=== PATIENT | female | born 1955 | race Caucasian/White ===

== ENCOUNTER 2019-03-10 08:59 | Inpatient (IN) | payer MEDICARE, MEDICAID ==
[2019-03-04 13:23] LABS: BASOPHILS % (AUTO) 0.6 % (0-1); EOSINOPHILS # (AUTO) 0.2 X10'3 (0-0.9); EOSINOPHILS % (AUTO) 3.2 % (0-6); LYMPHOCYTES # (AUTO) 1.2 X10'3 (1.1-4.8); LYMPHOCYTES % (AUTO) 15.4 % (21-51); MEAN CORPUSCULAR HEMOGLOBIN 30.9 PG (27.0-31.0); MEAN CORPUSCULAR HGB CONC 32.5 g/dL (33.0-36.5); MEAN CORPUSCULAR VOLUME 95.1 FL (78-98); MEAN PLATELET VOLUME 8.4 FL (7.4-10.4); MONOCYTES # (AUTO) 0.5 X10'3 (0-0.9); MONOCYTES % (AUTO) 6.5 % (2-12); NEUTROPHILS # (AUTO) 5.6 X10'3 (1.8-7.7); NEUTROPHILS % (AUTO) 74.3 % (42-75); PRE OP HEMATOCRIT 33.4 % (35.0-45.0); PRE OP PLATELET COUNT 281 X10'3 (140-440); RED BLOOD COUNT 3.52 X10'6 (4.20-5.60); RED CELL DISTRIBUTION WIDTH 14.9 % (11.5-14.5)
[2019-03-04 13:25] LABS: PRE OP HEMOGLOBIN 10.9 g/dL (12.0-16.0)
[2019-03-04 13:29] LABS: HEMOGLOBIN A1C 5.8 % (4.5-6.2)
[2019-03-04 13:35] LABS: ALBUMIN 3.7 G/DL (3.4-5.0); ALBUMIN/GLOBULIN RATIO 1.1 (1.1-1.5); ALKALINE PHOSPHATASE 60 IU/L (46-116); BLOOD UREA NITROGEN 27 MG/DL (7-18); BUN/CREATININE RATIO 43.5 (6.6-38.0); CALCIUM 9.3 MG/DL (8.5-10.1); CHLORIDE 107 MMOL/L (99-107); CREATININE 0.62 MG/DL (0.40-0.90); PRE OP ALT 22 U/L (30-65); PRE OP ANION GAP 8 (8-16); PRE OP AST 14 U/L (10-37); PRE OP BILIRUB, TOTAL 0.2 MG/DL (0.0-1.0); PRE OP GLUCOSE 100 MG/DL (70-104); PRE OP POTASSIUM 4.2 MMOL/L (3.4-5.1); PRE OP SODIUM 144 MMOL/L (135-145); TOTAL CARBON DIOXIDE 28.7 MMOL/L (24-32); TOTAL PROTEIN 7.1 G/DL (6.4-8.2); eGFR > 90 ML/MIN
[2019-03-04 14:41] LABS: PRE OP PROTIME 9.8 SECONDS (9.0-12.0)
[2019-03-10] VITALS (16 sets, daily range): BP systolic 110–162; BP diastolic 50–92
[~2019-03-10] VITALS: Ht 165.1 cm; Wt 102.0 kg
[2019-03-10] MEDS: potassium cl 20mEq in 1/2 NS 1,000 ML IV SCH ×4 (06:30→22:30)
[~2019-03-10 08:59] MED LIST: ALLO100T PO; AMIT100T2 PO; ASPI-611 PO; BENA40TA8 PO; BENAZEPRIL HCL PO SCH; BUPR150T13 PO; GABA-532 PO; HYDROmorphone 1 mg/ml syringe IV PRN; IBUP-1986 PO; MESSAGE TO PHARMACY PO ONE; METF-438 PO; MONT10TA24 PO; PIOG30TA71 PO; PRAM0.5T3 PO; SERT-153 PO; acetaminophen 325mg tablet PO ONE; acetaminophen 325mg tablet PO PRN; cefazolin/dext.iso 2gm/100 ML IV ONE; celeCOXIB 100mg capsule PO ONE; dextrose 50%-water 50ml dispensing syringe IV PRN; dextrose ORAL solution 15 GM/59 ML bottle PO PRN; diphenhydrAMINE 25mg capsule PO PRN; famotidine 20mg tablet PO ONE; gabapentin 300mg capsule PO ONE; glucagon, human recombinant 1mg kit SUBCUT PRN; insulin Lispro (HumaLOG) vial - multi-dose SQ SCH; magnesium hydroxide 30ml (MOM) UD suspension PO PRN; metoclopramide 5 mg/ml inj IV ONE; ondansetron/PF 4mg/2ml inj IV PRN; oxyCODONE SR 10mg (sust. release) tab -2 tabs (20mg) PO ONE; ringers solution, lacted 1,000 ML IV SCH; tranexamic acid inj. 1,000 MG in normal saline 100 ML IV ONE; vancomycin inj 1,500 MG in normal saline 300ml IV soln IV ONE
[2019-03-10] MEDS ORDERED: ketorolac trometh. 30mg/ml inj. ONE (10:49)
[2019-03-10] MEDS ORDERED: cloNIDine hcl/PF 100mcg/ml inj ONE (10:49)
[2019-03-10] MEDS ORDERED: epiNEPHrine 1 mg/ml inj ONE (10:49)
[2019-03-10] MEDS ORDERED: vancomycin 1,000mg inj ONE (10:49)
[2019-03-10] MEDS ORDERED: ROPIVAcaine 0.5% (5mg/ml) 30ml vial ONE (10:49)
[2019-03-10] MEDS ORDERED: tetracaine 1% (10mg/ml) pres. free inj. ONE (11:15)
[2019-03-10] MEDS ORDERED: MIDAZolam 1mg/ml 10ml vial ONE (11:31)
[2019-03-10] MEDS ORDERED: fentaNYL/PF 50MCG/1 ML 2ML syringe ONE (11:32)
[2019-03-10] MEDS ORDERED: morphine 4 MG/ML inj SYRINge IV PRN ×2 (12:45)
[2019-03-10] MEDS ORDERED: meperidine/PF 25mg/ml syringe IV PRN ×3 (12:45)
[2019-03-10] MEDS ORDERED: proCHLORperazine 10 MG/2 ml inj IV PRN (12:45)
[2019-03-10] MEDS ORDERED: ringers solution, lacted 1,000 ML IV SCH (12:45)
[2019-03-10] MEDS ORDERED: ondansetron/PF 4mg/2ml inj IV PRN (12:45)
--- NOTE | 2019-03-10 14:05 | NUR ---
Received from OR via BED , accompanied by Anesthesiologist DR MORALES and report given by Anesthesiolgist. PATIENT A&OX4, DENIES PAIN, V/S WNL, CSM INTACT, SENSATIONS AT T11, F/C DRAINING CLEAR YELLOW URINE, SCD ON, LEFT KNEE DRESSING CDI WITH JOSUE DRESSING AND ON QUE BALL.18G PIV LUE.
--- NOTE | 2019-03-10 14:55 | NUR ---
PATIENT A&OX4, DENIES PAIN, V/S WNL, CSM INTACT, SENSATIONS AT T11, F/C DRAINING CLEAR YELLOW URINE, SCD ON, LEFT KNEE DRESSING CDI WITH JOSUE DRESSING AND ON QUE BALL.18G PIV LUE. PATIENT TRANSFERED TO 401 WITH ALL BELONGINGS AND HOOKED UP TO MONITORS LEFT IN ROOM AND REPORT GIVEN TO RN WHO HAS TAKEN OVER PATIENT CARE.
[2019-03-10] MEDS ORDERED: AMIT-189 PO (15:29)
[2019-03-10] MEDS: ROPIVAcaine 0.2%/PF PAIN PUMP 550 ML IJ SCH (16:16)
[2019-03-10] MEDS ORDERED: tranexamic acid inj. 1,000 MG in normal saline 100ml IV soln 100 ML IV ONE (17:05)
[2019-03-10] MEDS: oxyCODONE/APAP 10/325mg tablet PO PRN (19:58)
[2019-03-10] MEDS: ascorbic acid 500mg tablet PO SCH (19:59)
[2019-03-10] MEDS: sennosides 8.6mg tablet PO SCH (20:06)
[2019-03-10] MEDS: cefazolin/dext.iso 2gm/100ml 100 ML IV SCH (20:06)
[2019-03-10] MEDS: montelukast 10mg tablet PO SCH (20:07)
[2019-03-10] MEDS: gabapentin 300mg capsule PO SCH (20:07)
[2019-03-10] MEDS ORDERED: PRAMIPEXOLE DI HCL PO SCH (21:00)
[2019-03-10] MEDS: insulin glargine (Lantus) pen - multi-dose SQ SCH (21:00)
[2019-03-10] MEDS ORDERED: amitriptyline 50mg tablet PO SCH (21:00)
[2019-03-10] MEDS ORDERED: AMITRIPTYLINE HCL PO SCH (21:00)
[2019-03-10] MEDS: amitriptyline 50mg tablet PO SCH (21:11)
[2019-03-10] MEDS: pramipexole 1mg tablet PO SCH (21:11)
[2019-03-10] MEDS: HYDROmorphone inj. 0.5 MG/0.5 ML DISP.SYRIN IV PRN (21:11)
[2019-03-11] MEDS: cefazolin/dext.iso 2gm/100ml 100 ML IV SCH ×2 (01:05→08:16)
[2019-03-11 02:00] VITALS: BP 110/50
[2019-03-11] MEDS: oxyCODONE/APAP 10/325mg tablet PO PRN ×5 (04:39→21:18)
[2019-03-11 06:00] VITALS: BP 133/57
[2019-03-11 06:26] LABS: BASOPHILS % (AUTO) 0.4 % (0-1); EOSINOPHILS # (AUTO) 0.3 X10'3 (0-0.9); EOSINOPHILS % (AUTO) 4.2 % (0-6); HEMATOCRIT 27.7 % (35.0-45.0); LYMPHOCYTES % (AUTO) 13.3 % (21-51); MEAN CORPUSCULAR HEMOGLOBIN 31.1 PG (27.0-31.0); MEAN CORPUSCULAR HGB CONC 32.5 g/dL (33.0-36.5); MEAN CORPUSCULAR VOLUME 95.7 FL (78-98); MEAN PLATELET VOLUME 8.4 FL (7.4-10.4); MONOCYTES # (AUTO) 0.7 X10'3 (0-0.9); NEUTROPHILS # (AUTO) 5.3 X10'3 (1.8-7.7); NEUTROPHILS % (AUTO) 73.1 % (42-75); PLATELET COUNT 244 X10'3 (140-440); RED CELL DISTRIBUTION WIDTH 15.2 % (11.5-14.5); WHITE BLOOD COUNT 7.3 X10'3 (4.5-11.0)
[2019-03-11] MEDS: potassium cl 20mEq in 1/2 NS 1,000 ML IV SCH ×3 (06:30→22:30)
--- NOTE | 2019-03-11 06:40 | NUR ---
Report given to neli Whitt.
[2019-03-11 06:42] LABS: ANION GAP 9 (8-16); CHLORIDE 104 MMOL/L (99-107); POTASSIUM 3.9 MMOL/L (3.5-5.1); SODIUM 140 MMOL/L (135-145); TOTAL CARBON DIOXIDE 27.1 MMOL/L (24-32)
[2019-03-11] MEDS ORDERED: bisacodyl 10mg suppository rectal RC PRN (08:00)
[2019-03-11] MEDS: ascorbic acid 500mg tablet PO SCH ×2 (08:19→20:58)
[2019-03-11] MEDS: multivitamins, therapeutics tablet PO SCH (08:19)
[2019-03-11] MEDS: gabapentin 300mg capsule PO SCH ×4 (08:19→20:58)
[2019-03-11] MEDS: sertraline 50mg tablet PO SCH (08:20)
[2019-03-11] MEDS: buPROPion SR 150mg tablet PO SCH (08:20)
[2019-03-11] MEDS: allopurinol 100mg tablet PO SCH (08:20)
[2019-03-11] MEDS: lisinopril 20mg tablet PO SCH (08:20)
[2019-03-11] MEDS: aspirin 325mg tablet PO SCH (08:20)
[2019-03-11 08:28] VITALS: BP 139/60
[2019-03-11 10:00] VITALS: BP 140/60
--- NOTE | 2019-03-11 10:21 | NUR ---
Ropivacaine increased to 8mls/per hour. Pt states she is having pain and wants [place] [id number] and is available until 1230. Dil IV will be given.
[2019-03-11] MEDS: HYDROmorphone inj. 0.5 MG/0.5 ML DISP.SYRIN IV PRN ×3 (10:25→19:13)
--- NOTE | 2019-03-11 12:17 | NUR ---
Joint consult: Pt PO 100% carb controlled meals meeting needs. Labs WNL. LBM 03/10. No nutrition concerns at this time. Will continue to monitor. Addendum: 03/11/19 at [address] Amended: Links added.
[2019-03-11 18:00] VITALS: BP 135/63
--- NOTE | 2019-03-11 18:00 | NUR ---
walking past rm 4013 when notice the pt trying to get out of bed on her own. stopped to get her safely to the bathroom, and educated her about safe use of DME and to use the call swenson and WAIT for help. pt is noncompliant. pt has family member at bedside and he also is warning her to wait. The pt was educated to use the call swenson again when she is done using the toilet.
--- NOTE | 2019-03-11 18:19 | NUR ---
pT ASSISTED UP TO BR WITH FWW. PT TOLD TO CALL WHEN SHE WAS DONE AND SHE WOULD BE ASSISTED BACK TO BED. PT GOT UP FROM TOILET ON HER OWN AND FELL ONTO HER LEFT KNEE JUST OUTSIDE THE RESTROOM. FALL WAS WITNESSED BY SON, NOT STAFF. VS TAKEN AND ARE FOLLOWS, 99.8, 155/93, 97%, 18, 108. DR. LUNA INFORMED AND XRAY OF LEFT KNEE ORDERED. POST FALL ASSESSMENT FORM FILLED OUT.
--- NOTE | 2019-03-11 18:43 | NUR ---
Problems reprioritized. Patient report given, questions answered & plan of care reviewed with CYNTHIA ARVIZU.
[2019-03-11] MEDS: montelukast 10mg tablet PO SCH (20:58)
[2019-03-11] MEDS: celeCOXIB 100mg capsule PO SCH (20:58)
[2019-03-11] MEDS: pramipexole 1mg tablet PO SCH (20:58)
[2019-03-11] MEDS: amitriptyline 50mg tablet PO SCH (20:59)
[2019-03-11] MEDS: sennosides 8.6mg tablet PO SCH (20:59)
[2019-03-11] MEDS: insulin glargine (Lantus) pen - multi-dose SQ SCH (21:00)
[2019-03-11 22:00] VITALS: BP 115/58
--- NOTE | 2019-03-11 23:39 | NUR ---
Pt refused cold pack.
[2019-03-12] MEDS: oxyCODONE/APAP 10/325mg tablet PO PRN ×5 (01:20→21:03)
[2019-03-12 06:00] VITALS: BP 129/60
[2019-03-12 06:18] LABS: BASOPHILS % (AUTO) 0.5 % (0-1); EOSINOPHILS # (AUTO) 0.2 X10'3 (0-0.9); EOSINOPHILS % (AUTO) 2.8 % (0-6); HEMATOCRIT 24.2 % (35.0-45.0); HEMOGLOBIN 8.2 g/dl (12.0-16.0); LYMPHOCYTES # (AUTO) 0.9 X10'3 (1.1-4.8); LYMPHOCYTES % (AUTO) 13.2 % (21-51); MEAN CORPUSCULAR HEMOGLOBIN 31.4 PG (27.0-31.0); MEAN CORPUSCULAR HGB CONC 33.7 g/dL (33.0-36.5); MEAN CORPUSCULAR VOLUME 93.2 FL (78-98); MEAN PLATELET VOLUME 8.5 FL (7.4-10.4); MONOCYTES # (AUTO) 0.9 X10'3 (0-0.9); MONOCYTES % (AUTO) 13.2 % (2-12); NEUTROPHILS # (AUTO) 4.9 X10'3 (1.8-7.7); NEUTROPHILS % (AUTO) 70.3 % (42-75); PLATELET COUNT 251 X10'3 (140-440); RED BLOOD COUNT 2.59 X10'6 (4.20-5.60); RED CELL DISTRIBUTION WIDTH 14.8 % (11.5-14.5); WHITE BLOOD COUNT 6.9 X10'3 (4.5-11.0)
--- NOTE | 2019-03-12 06:39 | NUR ---
REPORT GIVEN TO NOLBERTO FRANKLIN.
[2019-03-12] MEDS: multivitamins, therapeutics tablet PO SCH (07:59)
[2019-03-12] MEDS: celeCOXIB 100mg capsule PO SCH ×2 (07:59→20:47)
[2019-03-12] MEDS: gabapentin 300mg capsule PO SCH ×4 (07:59→20:48)
[2019-03-12] MEDS: lisinopril 20mg tablet PO SCH (08:00)
[2019-03-12] MEDS: buPROPion SR 150mg tablet PO SCH (08:00)
[2019-03-12] MEDS: ascorbic acid 500mg tablet PO SCH ×2 (08:00→20:48)
[2019-03-12] MEDS: allopurinol 100mg tablet PO SCH (08:01)
[2019-03-12] MEDS: aspirin 325mg tablet PO SCH (08:01)
[2019-03-12] MEDS: sertraline 50mg tablet PO SCH (08:01)
[2019-03-12] MEDS ORDERED: normal saline 1000ml 1,000 ML IV ONE (09:10)
[2019-03-12 10:00] VITALS: BP_SYST 88; BP_SYST 92; BP_DIAS 47; BP_DIAS 64
--- NOTE | 2019-03-12 17:52 | NUR ---
Patient back from OR
[2019-03-12 18:00] VITALS: BP 114/67
--- NOTE | 2019-03-12 18:30 | NUR ---
Received report from Tiesha ARVIZU. Assumed care of patient.
--- NOTE | 2019-03-12 18:39 | NUR ---
Report to Manolo ARVIZU
[2019-03-12] MEDS: sennosides 8.6mg tablet PO SCH (20:47)
[2019-03-12] MEDS: amitriptyline 50mg tablet PO SCH (20:48)
[2019-03-12] MEDS: montelukast 10mg tablet PO SCH (20:48)
[2019-03-12] MEDS: pramipexole 1mg tablet PO SCH (20:48)
[2019-03-12] MEDS: insulin glargine (Lantus) pen - multi-dose SQ SCH (21:00)
[2019-03-12 22:00] VITALS: BP 129/46
[2019-03-13] VITALS (7 sets, daily range): BP systolic 110–122; BP diastolic 37–50
[2019-03-13] MEDS: oxyCODONE/APAP 10/325mg tablet PO PRN ×4 (04:30→22:59)
--- NOTE | 2019-03-13 06:15 | NUR ---
Gave report to Tiesha ARVIZU.
[2019-03-13 06:37] LABS: BASOPHILS % (AUTO) 0.2 % (0-1); EOSINOPHILS # (AUTO) 0.2 X10'3 (0-0.9); EOSINOPHILS % (AUTO) 3.1 % (0-6); HEMOGLOBIN 7.2 g/dl (12.0-16.0); LYMPHOCYTES # (AUTO) 0.8 X10'3 (1.1-4.8); LYMPHOCYTES % (AUTO) 10.8 % (21-51); MEAN CORPUSCULAR HEMOGLOBIN 31.2 PG (27.0-31.0); MEAN CORPUSCULAR HGB CONC 33.3 g/dL (33.0-36.5); MEAN CORPUSCULAR VOLUME 93.7 FL (78-98); MEAN PLATELET VOLUME 8.4 FL (7.4-10.4); MONOCYTES # (AUTO) 0.9 X10'3 (0-0.9); MONOCYTES % (AUTO) 12.4 % (2-12); NEUTROPHILS # (AUTO) 5.6 X10'3 (1.8-7.7); NEUTROPHILS % (AUTO) 73.5 % (42-75); PLATELET COUNT 232 X10'3 (140-440); RED BLOOD COUNT 2.31 X10'6 (4.20-5.60); RED CELL DISTRIBUTION WIDTH 14.8 % (11.5-14.5); WHITE BLOOD COUNT 7.6 X10'3 (4.5-11.0)
[2019-03-13 06:44] LABS: HEMATOCRIT 21.6 % (35.0-45.0)
[2019-03-13] MEDS: ascorbic acid 500mg tablet PO SCH ×2 (09:32→19:55)
[2019-03-13] MEDS: buPROPion SR 150mg tablet PO SCH (09:32)
[2019-03-13] MEDS: gabapentin 300mg capsule PO SCH ×4 (09:33→19:55)
[2019-03-13] MEDS: aspirin 325mg tablet PO SCH (09:33)
[2019-03-13] MEDS: allopurinol 100mg tablet PO SCH (09:33)
[2019-03-13] MEDS: amitriptyline 50mg tablet PO SCH (09:33)
[2019-03-13] MEDS: celeCOXIB 100mg capsule PO SCH ×2 (09:34→19:55)
[2019-03-13] MEDS: lisinopril 20mg tablet PO SCH (09:38)
[2019-03-13] MEDS: multivitamins, therapeutics tablet PO SCH (09:38)
[2019-03-13] MEDS: sertraline 50mg tablet PO SCH (09:39)
--- NOTE | 2019-03-13 09:41 | NUR ---
Late entry, called Dr. san regarding critical value of Hct, hbg, also patient desaturated to 74% during physical therapy so they could not work with her. HR of 130's was added from am, HR NOW 94
--- NOTE | 2019-03-13 18:44 | NUR ---
Problems reprioritized. Patient report given, questions answered & plan of care reviewed with Jesus ARVIZU.
--- NOTE | 2019-03-13 19:08 | NUR ---
Patient in room ORTHO 4013. I have received report from Tiesha Nava and had the opportunity to ask questions and assume patient care. Addendum: 03/13/19 at 1910 by Nury Mendosa RN Amended: Links added.
[2019-03-13] MEDS: sennosides 8.6mg tablet PO SCH (19:54)
[2019-03-13] MEDS: pramipexole 1mg tablet PO SCH (19:54)
[2019-03-13] MEDS: montelukast 10mg tablet PO SCH (19:54)
--- NOTE | 2019-03-13 20:05 | NUR ---
pt took hs meds and tolerated well without complaints. then ambulated with walker to brp with assist.
[2019-03-13] MEDS: insulin glargine (Lantus) pen - multi-dose SQ SCH (21:00)
--- NOTE | 2019-03-13 22:00 | NUR ---
awoke for hs vitals and tolerated well the amb to brp.
--- NOTE | 2019-03-13 23:00 | NUR ---
medicated for pain with one percocet at this time.
[2019-03-14] VITALS (8 sets, daily range): BP systolic 103–131; BP diastolic 46–59
--- NOTE | 2019-03-14 00:27 | NUR ---
pt resting on her side without s&sv of distress at this time.
--- NOTE | 2019-03-14 02:02 | NUR ---
pt resting without changes.
--- NOTE | 2019-03-14 03:19 | NUR ---
pt given sips of water when she woke up. c/o sore throat. Addendum: 03/14/19 at 0321 by Nury Mendosa RN note on a different pt. she is resting without s&s of distress at this time.
--- NOTE | 2019-03-14 05:22 | NUR ---
pt awake and up with assist to ambulate to brp.
--- NOTE | 2019-03-14 06:25 | NUR ---
Problems reprioritized. Patient report given, questions answered & plan of care reviewed with TOMMIE ARVIZU. Addendum: 03/14/19 at 0625 by Nury Mendosa RN Amended: Links added.
--- NOTE | 2019-03-14 07:07 | NUR ---
Patient in room ORTHO 4013. I have received report from Nury ARVIZU and had the opportunity to ask questions and assume patient care.
[2019-03-14] MEDS: ascorbic acid 500mg tablet PO SCH ×2 (07:19→20:42)
[2019-03-14] MEDS: oxyCODONE/APAP 10/325mg tablet PO PRN ×3 (07:19→20:45)
[2019-03-14] MEDS: multivitamins, therapeutics tablet PO SCH (07:19)
[2019-03-14] MEDS: celeCOXIB 100mg capsule PO SCH ×2 (07:20→20:43)
[2019-03-14] MEDS: gabapentin 300mg capsule PO SCH ×4 (07:20→20:42)
[2019-03-14] MEDS: sertraline 50mg tablet PO SCH (07:20)
[2019-03-14] MEDS: allopurinol 100mg tablet PO SCH (07:20)
[2019-03-14] MEDS: lisinopril 20mg tablet PO SCH (07:21)
[2019-03-14] MEDS: buPROPion SR 150mg tablet PO SCH (07:21)
[2019-03-14] MEDS: aspirin 325mg tablet PO SCH (08:08)
[2019-03-14 09:43] LABS: BASOPHILS % (AUTO) 0.7 % (0-1); EOSINOPHILS # (AUTO) 0.4 X10'3 (0-0.9); EOSINOPHILS % (AUTO) 5.5 % (0-6); LYMPHOCYTES # (AUTO) 1.1 X10'3 (1.1-4.8); LYMPHOCYTES % (AUTO) 16.9 % (21-51); MEAN CORPUSCULAR HEMOGLOBIN 31.7 PG (27.0-31.0); MEAN CORPUSCULAR HGB CONC 33.5 g/dL (33.0-36.5); MEAN CORPUSCULAR VOLUME 94.5 FL (78-98); MONOCYTES # (AUTO) 0.7 X10'3 (0-0.9); MONOCYTES % (AUTO) 10.1 % (2-12); NEUTROPHILS # (AUTO) 4.4 X10'3 (1.8-7.7); NEUTROPHILS % (AUTO) 66.8 % (42-75); PLATELET COUNT 282 X10'3 (140-440); RED BLOOD COUNT 2.16 X10'6 (4.20-5.60); RED CELL DISTRIBUTION WIDTH 14.8 % (11.5-14.5); WHITE BLOOD COUNT 6.5 X10'3 (4.5-11.0)
[2019-03-14 09:57] LABS: HEMATOCRIT 20.4 % (35.0-45.0); HEMOGLOBIN 6.9 g/dl (12.0-16.0)
--- NOTE | 2019-03-14 10:03 | NUR ---
Called orthopedic watcher [employer] to report critical Hgb 6.9 and HCT 20.4, one unit of blood ordered, will continue to monitor
[2019-03-14] MEDS: ROPIVAcaine 0.2%/PF PAIN PUMP 550 ML IJ SCH (13:03)
[2019-03-14 18:06] LABS: BASOPHILS # (AUTO) 0.1 X10'3 (0-0.2); BASOPHILS % (AUTO) 0.7 % (0-1); EOSINOPHILS # (AUTO) 0.4 X10'3 (0-0.9); EOSINOPHILS % (AUTO) 5.5 % (0-6); HEMATOCRIT 22.7 % (35.0-45.0); HEMOGLOBIN 7.8 g/dl (12.0-16.0); LYMPHOCYTES # (AUTO) 1.4 X10'3 (1.1-4.8); MEAN CORPUSCULAR HGB CONC 34.3 g/dL (33.0-36.5); MEAN CORPUSCULAR VOLUME 93.2 FL (78-98); MONOCYTES # (AUTO) 0.8 X10'3 (0-0.9); MONOCYTES % (AUTO) 10.5 % (2-12); NEUTROPHILS # (AUTO) 4.6 X10'3 (1.8-7.7); NEUTROPHILS % (AUTO) 64.3 % (42-75); PLATELET COUNT 333 X10'3 (140-440); RED BLOOD COUNT 2.44 X10'6 (4.20-5.60); RED CELL DISTRIBUTION WIDTH 14.7 % (11.5-14.5); WHITE BLOOD COUNT 7.1 X10'3 (4.5-11.0)
--- NOTE | 2019-03-14 18:30 | NUR ---
Patient in room ORTHO 4013. I have received report from Paul ARVIZU and had the opportunity to ask questions and assume patient care.
--- NOTE | 2019-03-14 18:33 | NUR ---
Problems reprioritized. Patient report given, questions answered & plan of care reviewed with Kaity ARVIZU.
[2019-03-14] MEDS: montelukast 10mg tablet PO SCH (20:42)
[2019-03-14] MEDS: pramipexole 1mg tablet PO SCH (20:43)
[2019-03-14] MEDS: sennosides 8.6mg tablet PO SCH (20:43)
[2019-03-14] MEDS: amitriptyline 50mg tablet PO SCH (20:43)
[2019-03-14] MEDS: insulin glargine (Lantus) pen - multi-dose SQ SCH (21:00)
[2019-03-15] MEDS: oxyCODONE/APAP 10/325mg tablet PO PRN ×2 (05:26→11:24)
[2019-03-15 06:00] VITALS: BP 133/46
--- NOTE | 2019-03-15 06:39 | NUR ---
Problems reprioritized. Patient report given, questions answered & plan of care reviewed with Shelby ARVIZU.
[2019-03-15] MEDS: celeCOXIB 100mg capsule PO SCH (08:30)
[2019-03-15] MEDS: ascorbic acid 500mg tablet PO SCH (08:31)
[2019-03-15] MEDS: gabapentin 300mg capsule PO SCH (08:31)
[2019-03-15] MEDS: lisinopril 20mg tablet PO SCH (08:31)
[2019-03-15] MEDS: sertraline 50mg tablet PO SCH (08:31)
[2019-03-15] MEDS: allopurinol 100mg tablet PO SCH (08:31)
[2019-03-15] MEDS: buPROPion SR 150mg tablet PO SCH (08:31)
[2019-03-15] MEDS: multivitamins, therapeutics tablet PO SCH (08:31)
[2019-03-15] MEDS: aspirin 325mg tablet PO SCH (08:32)
[2019-03-15 10:00] VITALS: BP 118/94
--- NOTE | 2019-03-15 10:00 | NUR ---
Received discharge orders from Dr. Salinas Sloan. Removed empty Ropivicaine injection from patient as it was empty when assessed. Instruction pt on when to discontinue JOSUE drain. Gave pt 3 island dressings and 2 cold packs for dc to home. Pt states she will be going to outpatient rehab after discharge, and has appt with Dr. Sloan in 2 weeks. IV dc'd from LFA with cannula intact. No redness/swelling at insertion site. Bandaid applied. Discharged to home via w/c in private vehicle.
== END 2019-03-15 11:45 | disposition home or self-care (01) | DRG 470 ==
LOC: PAS IN 08:59 → EDSTATUS 11:45 → ORTHO 4S 15:30
PROVIDERS: ADMIT Orthopaedic Surgery; ATTEND Orthopaedic Surgery
PROC: 3E0T3BZ Introduction of Anesthetic Agent into Peripheral Nerves and Plexi, Percutaneous Approach (ICD-10-PCS; 2019-03-10)
PROC: 0SRD069 Replacement of Left Knee Joint with Oxidized Zirconium on Polyethylene Synthetic Substitute, Cemented, Open Approach (ICD-10-PCS; principal; 2019-03-10 11:32)
PROC: 30233N1 Transfusion of Nonautologous Red Blood Cells into Peripheral Vein, Percutaneous Approach (ICD-10-PCS; 2019-03-14)
DX: M17.12 Unilateral primary osteoarthritis, left knee (principal); D62 Acute posthemorrhagic anemia; E66.9 Obesity, unspecified; F17.210 Nicotine dependence, cigarettes, uncomplicated; E11.9 Type 2 diabetes mellitus without complications; M1A.9XX0 Chronic gout, unspecified, without tophus (tophi); I10 Essential (primary) hypertension; F32.9 Major depressive disorder, single episode, unspecified; F41.9 Anxiety disorder, unspecified; Z90.710 Acquired absence of both cervix and uterus; Z68.37 Body mass index [BMI] 37.0-37.9, adult; Z79.84 Long term (current) use of oral hypoglycemic drugs; Z79.82 Long term (current) use of aspirin; Z82.49 Family history of ischemic heart disease and other diseases of the circulatory system; Z81.8 Family history of other mental and behavioral disorders; W18.39XA Other fall on same level, initial encounter; Y93.89 Activity, other specified; Y92.231 Patient bathroom in hospital as the place of occurrence of the external cause; Y99.8 Other external cause status; Z79.899 Other long term (current) drug therapy; M21.062 Valgus deformity, not elsewhere classified, left knee; M10.9 Gout, unspecified
CPT/HCPCS: 36415; 71046; 73560; 80051; 80053; 82948; 83036; 85025; 85610; 85730; 86885; 86900; 86901; 86920; 87081; 97110; 97116; 97162; 97530; A4215; A6449; A6454; A7000; C1713; C1758; C1776; G0378; J0171; J0735; J1170; J1815; J1885; J2250; J2765; J2795; J3010; J3370; J3480; J7030; J7120; P9016

== ENCOUNTER 2021-11-15 11:09 | Inpatient (IN) | payer MEDICARE, MEDICAID ==
[~2021-11-15] VITALS: Ht 165.1 cm; Wt 136.4 kg
[~2021-11-15 11:09] MED LIST changes: +AMIT-189 PO; -AMIT100T2 PO; -BENA40TA8 PO; +BENA40TA90 PO; -BENAZEPRIL HCL PO SCH; -BUPR150T13 PO; -HYDROmorphone 1 mg/ml syringe IV PRN; -MESSAGE TO PHARMACY PO ONE; +MONT-40 PO; -MONT10TA24 PO; +[UNRECOGNIZED DRUG - CODE] PO; -acetaminophen 325mg tablet PO ONE; -acetaminophen 325mg tablet PO PRN; -cefazolin/dext.iso 2gm/100 ML IV ONE; -celeCOXIB 100mg capsule PO ONE; -dextrose 50%-water 50ml dispensing syringe IV PRN; -dextrose ORAL solution 15 GM/59 ML bottle PO PRN; -diphenhydrAMINE 25mg capsule PO PRN; -famotidine 20mg tablet PO ONE; -gabapentin 300mg capsule PO ONE; -glucagon, human recombinant 1mg kit SUBCUT PRN; -insulin Lispro (HumaLOG) vial - multi-dose SQ SCH; -magnesium hydroxide 30ml (MOM) UD suspension PO PRN; -metoclopramide 5 mg/ml inj IV ONE; -ondansetron/PF 4mg/2ml inj IV PRN; -oxyCODONE SR 10mg (sust. release) tab -2 tabs (20mg) PO ONE; -ringers solution, lacted 1,000 ML IV SCH; -tranexamic acid inj. 1,000 MG in normal saline 100 ML IV ONE; -vancomycin inj 1,500 MG in normal saline 300ml IV soln IV ONE
--- NOTE | 2021-11-15 11:57 | NUR ---
PT LOCAL AREA NETWORK ADMINISTRATOR TRIAGE REVIEWED AND APPROVED.
--- NOTE | 2021-11-15 12:39 | NUR ---
SARABJIT REYNOLDS MADE AWARE OF PT'S XRAY.
--- NOTE | 2021-11-15 13:35 | NUR ---
SARABJIT REYNOLDS AND DR. COTTON AT BEDSIDE
[2021-11-15] MEDS ORDERED: ondansetron/PF 4mg/2ml inj IV ONE (13:50)
[2021-11-15] MEDS ORDERED: morphine 4 MG/ML inj SYRINge IV ONE (13:50)
[2021-11-15] MEDS ORDERED: ketorolac trometh. 30mg/ml inj. IV ONE ×2 (13:50→13:55)
[2021-11-15] MEDS ORDERED: normal saline 1000ml 1,000 ML IV ONE (13:55)
[2021-11-15] MEDS ORDERED: ketamine 10mg/ml 20ml inj vial IV ONE (14:55)
--- NOTE | 2021-11-15 15:00 | NUR ---
RT & METAL PATTERNMAKER BILL PAGED FOR MOD SEDATION.
[2021-11-15] MEDS ORDERED: ketamine 50mg/5ml syringe IV ONE (15:05)
[2021-11-15] MEDS ORDERED: ketamine 50 mg/ml 10ml vial IV ONE (15:10)
[2021-11-15] MEDS ORDERED: LIDOcaine 2% 10ml TOPICAL JELLY (Urojet) TP ONE (15:40)
[2021-11-15 15:54] LABS: BASOPHILS # (AUTO) 0.1 X10'3 (0-0.2); EOSINOPHILS # (AUTO) 0.4 X10'3 (0-0.9); EOSINOPHILS % (AUTO) 3.5 % (0-6); HEMATOCRIT 34.5 % (35.0-45.0); HEMOGLOBIN 11.1 g/dl (12.0-16.0); LYMPHOCYTES # (AUTO) 1.7 X10'3 (1.1-4.8); LYMPHOCYTES % (AUTO) 15.8 % (21-51); MEAN CORPUSCULAR HGB CONC 32.3 g/dL (33.0-36.5); MEAN CORPUSCULAR VOLUME 86.7 FL (78-98); MEAN PLATELET VOLUME 9.1 FL (7.4-10.4); MONOCYTES # (AUTO) 0.7 X10'3 (0-0.9); MONOCYTES % (AUTO) 6.7 % (2-12); PLATELET COUNT 299 X10'3 (140-440); RED BLOOD COUNT 3.97 X10'6 (4.20-5.60); RED CELL DISTRIBUTION WIDTH 17.7 % (11.5-14.5)
--- NOTE | 2021-11-15 16:05 | NUR ---
Procedure started at 1522. Pt was given 270mg Ketamine IV total. Pt sedated moderately for left ankle reduction. RT, emergency response technician, MD laoiza, and SARABJIT Johnson at bedside with nurse. Pt was placed on 2 L via NC with ETCO2 per RT to maintain sats >92-94%. Procedure done at 1525 and pt's left ankle was placed in cast. Pt was completely awake and back to baseline score by 1555. Pt responding to all questions appropriately and states she has no pain at this time.
[2021-11-15 16:06] LABS: ALANINE AMINOTRANSFERASE 20 U/L (12-78); ALBUMIN 2.8 G/DL (3.4-5.0); ALBUMIN/GLOBULIN RATIO 0.7 (1.1-1.5); ALKALINE PHOSPHATASE 100 IU/L (46-116); ANION GAP 11 (8-16); ASPARTATE AMINO TRANSFERASE 19 U/L (10-37); BILIRUBIN,TOTAL 0.3 MG/DL (0.1-1.0); BLOOD UREA NITROGEN 20 MG/DL (7-18); BUN/CREATININE RATIO 23.8 (6.6-38.0); CALCIUM 8.6 MG/DL (8.5-10.1); CHLORIDE 106 MMOL/L (99-107); CREATININE 0.84 MG/DL (0.40-0.90); GLUCOSE 131 MG/DL (70-104); POTASSIUM 3.8 MMOL/L (3.5-5.1); SODIUM 141 MMOL/L (135-145); TOTAL CARBON DIOXIDE 23.8 MMOL/L (24-32); TOTAL PROTEIN 6.8 G/DL (6.4-8.2); eGFR 68 ML/MIN
[2021-11-15] MEDS ORDERED: ceFAZolin/D5W- 1GM premix 50 ML IV STA (16:06)
[2021-11-15 16:50] LABS: CLARITY,URINE SLIGHTLY CLOUDY (Clear); COLOR,URINE YELLOW (Yellow); GLUCOSE, URINE NEGATIVE (Neg); KETONES,URINE NEGATIVE (Neg); LEUKOCYTE ESTERASE ,URINE NEGATIVE (Neg); NITRITES, URINE NEGATIVE (Neg); OCCULT BLOOD,URINE NEGATIVE (Neg); PROTEIN,URINE 100 mg/dl (Neg); UROBILINOGEN,URINE 0.2 E.U/dL (0.2-1.0)
[2021-11-15] MEDS ORDERED: BUPR150T8 PO (16:53)
[2021-11-15] MEDS ORDERED: AMIT100T61 PO (16:53)
[2021-11-15] MEDS ORDERED: PIOG30TA71 PO (16:53)
[2021-11-15] MEDS ORDERED: BENA40TA46 PO (16:53)
[2021-11-15] MEDS ORDERED: IBUP-1984 PO (16:53)
[2021-11-15] MEDS ORDERED: TRAM50TA2 PO (16:53)
[2021-11-15] MEDS ORDERED: ASPI-1397 PO (16:53)
[2021-11-15] MEDS ORDERED: SERT-433 PO (16:53)
[2021-11-15] MEDS ORDERED: LORA10TA7 PO (16:53)
[2021-11-15] MEDS ORDERED: BUPR-72 PO (16:53)
[2021-11-15] MEDS ORDERED: ATOR40TA72 PO (16:53)
[2021-11-15] MEDS ORDERED: PRAM1TAB6 PO (16:53)
[2021-11-15] MEDS ORDERED: BENA40TA72 PO (16:53)
[2021-11-15] MEDS ORDERED: ALLO100T PO (16:53)
[2021-11-15] MEDS ORDERED: METF-438 PO (16:53)
[2021-11-15] MEDS ORDERED: magnesium 2GM in 50ml NS 50 ML IV PRN (16:55)
[2021-11-15] MEDS ORDERED: ondansetron/PF 4mg/2ml inj IV PRN (16:55)
[2021-11-15] MEDS ORDERED: MESSAGE TO PHARMACY PO ONE (16:55)
[2021-11-15] MEDS ORDERED: mag hydrox/Alum hydrox/simeth 30ml oral suspension PO PRN (16:55)
[2021-11-15] MEDS ORDERED: POTASSIUM BICARB 20meq eff tab 20 MEQ TABLET.EFF PO PRN ×2 (16:55)
[2021-11-15] MEDS ORDERED: HYDROcodone/acetaminophen 5mg/325mg tablet PO PRN (16:55)
[2021-11-15] MEDS ORDERED: dextrose 50%-water 50ml dispensing syringe IV PRN ×2 (16:55)
[2021-11-15] MEDS ORDERED: HYDROmorphone inj. 0.5 MG/0.5 ML DISP.SYRIN IV PRN (16:55)
[2021-11-15] MEDS ORDERED: magnesium hydroxide 30ml (MOM) UD suspension PO PRN (16:55)
[2021-11-15] MEDS ORDERED: potassium CL 10mEq/100ml bag 100 ML IV PRN (16:55)
[2021-11-15] MEDS ORDERED: DEXTROSE 15 GM of carb/4 tabs (each vial/BOTTLE has 4 tablets) PO PRN ×2 (16:55)
[2021-11-15] MEDS ORDERED: hydrALAZINE 20mg/ml inj. IV PRN (16:55)
[2021-11-15] MEDS ORDERED: insulin Lispro (HumaLOG) vial - multi-dose SQ SCH (16:55)
[2021-11-15] MEDS ORDERED: HYDROmorphone/PF 0.2 MG/ML SYRINGE IV PRN (16:55)
[2021-11-15] MEDS ORDERED: glucagon, human recombinant 1mg kit SUBCUT PRN (16:55)
[2021-11-15] MEDS ORDERED: acetaminophen 325mg tablet PO PRN ×2 (16:55)
[2021-11-15] MEDS ORDERED: magnesium 4gm in 100ml NS 100 ML IV PRN (16:55)
[2021-11-15 16:56] LABS: UA COLLECTION TYPE NON-SPECIFIED
[2021-11-15 16:57] LABS: CELLULAR CAST 0-4 /LPF (NEGATIVE); MUCUS STRANDS FEW /LPF (Neg); SQUAMOUS EPITHELIAL CELL,UR FEW /LPF (FEW)
[2021-11-15 16:58] LABS: BACTERIA,URINE 1+ /HPF (Neg); RBC,URINE 0-2 /HPF (0-2)
--- NOTE | 2021-11-15 17:01 | NUR ---
Called pharmacist for [facility]. They will bring it to us shortly.
[2021-11-15] MEDS ORDERED: pramipexole 1mg tablet PO PRN (17:05)
[2021-11-15 17:20] LABS: HEMOGLOBIN A1C 7.3 % (4.5-6.2)
[2021-11-15] MEDS: normal saline 1000ml 1,000 ML IV SCH (17:37)
--- NOTE | 2021-11-15 17:39 | NUR ---
Pt's IV infiltrated with fluids infusing. IV d/c cath intact, swollen.
[2021-11-15] MEDS: K and/or MAG REPLACEMENT MC SCH (20:00)
[2021-11-15] MEDS: docusate sod 100mg capsule PO SCH (20:00)
[2021-11-15] MEDS: HYDROmorphone 1 mg/ml syringe IV PRN (20:00)
[2021-11-15] MEDS: enoxaparin 40mg/0.4ml syringe SQ SCH (20:01)
[2021-11-15] MEDS: insulin glargine (Lantus) pen - multi-dose SQ SCH (21:00)
[2021-11-15] MEDS: amitriptyline 50mg tablet PO SCH (21:51)
[2021-11-15] MEDS: ibuprofen tablet 400 MG TABLET PO SCH (23:42)
[2021-11-15] MEDS: HYDROcodone/acetaminophen 10/325mg tab PO PRN (23:48)
[2021-11-16 01:51] LABS: BASOPHILS # (AUTO) 0.1 X10'3 (0-0.2); BASOPHILS % (AUTO) 0.6 % (0-1); EOSINOPHILS # (AUTO) 0.5 X10'3 (0-0.9); EOSINOPHILS % (AUTO) 5.9 % (0-6); HEMATOCRIT 32.8 % (35.0-45.0); HEMOGLOBIN 10.4 g/dl (12.0-16.0); LYMPHOCYTES # (AUTO) 2.1 X10'3 (1.1-4.8); LYMPHOCYTES % (AUTO) 23.3 % (21-51); MEAN CORPUSCULAR HEMOGLOBIN 27.6 PG (27.0-31.0); MEAN CORPUSCULAR HGB CONC 31.8 g/dL (33.0-36.5); MEAN CORPUSCULAR VOLUME 86.8 FL (78-98); MEAN PLATELET VOLUME 8.9 FL (7.4-10.4); MONOCYTES # (AUTO) 0.7 X10'3 (0-0.9); MONOCYTES % (AUTO) 8.3 % (2-12); NEUTROPHILS # (AUTO) 5.5 X10'3 (1.8-7.7); NEUTROPHILS % (AUTO) 61.9 % (42-75); PLATELET COUNT 279 X10'3 (140-440); RED BLOOD COUNT 3.78 X10'6 (4.20-5.60); RED CELL DISTRIBUTION WIDTH 17.4 % (11.5-14.5)
--- NOTE | 2021-11-16 02:08 | NUR ---
relieving RN for lunch, pt was moved from ER [facility] to hospital bed, left leg elevated on pillows, no beds available upstairs, pt to remain in ER
[2021-11-16 02:10] LABS: ALANINE AMINOTRANSFERASE 16 U/L (12-78); ALBUMIN 2.6 G/DL (3.4-5.0); ALBUMIN/GLOBULIN RATIO 0.7 (1.1-1.5); ALKALINE PHOSPHATASE 105 IU/L (46-116); ANION GAP 7 (8-16); ASPARTATE AMINO TRANSFERASE 18 U/L (10-37); BILIRUBIN,TOTAL 0.3 MG/DL (0.1-1.0); BLOOD UREA NITROGEN 21 MG/DL (7-18); BUN/CREATININE RATIO 24.4 (6.6-38.0); CALCIUM 8.2 MG/DL (8.5-10.1); CHLORIDE 110 MMOL/L (99-107); CREATININE 0.86 MG/DL (0.40-0.90); GLUCOSE 147 MG/DL (70-104); POTASSIUM 3.9 MMOL/L (3.5-5.1); SODIUM 141 MMOL/L (135-145); TOTAL CARBON DIOXIDE 24.2 MMOL/L (24-32); TOTAL PROTEIN 6.3 G/DL (6.4-8.2); eGFR 66 ML/MIN
[2021-11-16] MEDS: normal saline 1000ml 1,000 ML IV SCH ×3 (03:21→22:55)
[2021-11-16] MEDS: buPROPion SR 150mg tablet PO SCH ×2 (07:49→07:51)
[2021-11-16] MEDS: loratadine 10mg tablet PO SCH (07:50)
[2021-11-16] MEDS: sertraline 50mg tablet PO SCH (07:50)
[2021-11-16] MEDS: ibuprofen tablet 400 MG TABLET PO SCH ×2 (07:50→19:03)
[2021-11-16] MEDS: atorvastatin 20mg tablet PO SCH (07:50)
[2021-11-16] MEDS: aspirin 81mg, enteric-coated 1 TAB TABLET.DR PO SCH (07:50)
[2021-11-16] MEDS: docusate sod 100mg capsule PO SCH ×2 (07:51→19:03)
[2021-11-16] MEDS: lisinopril 20mg tablet PO SCH (07:51)
[2021-11-16] MEDS: allopurinol 100mg tablet PO SCH (07:51)
[2021-11-16] MEDS: HYDROmorphone 1 mg/ml syringe IV PRN ×3 (07:54→19:00)
[2021-11-16] MEDS: K and/or MAG REPLACEMENT MC SCH ×2 (08:00→20:00)
--- NOTE | 2021-11-16 08:24 | NUR ---
Patient's son, Jorge, called; transferred to patient room per request.
--- NOTE | 2021-11-16 08:27 | NUR ---
Patient given breakfast tray.
--- NOTE | 2021-11-16 16:32 | NUR ---
Attempted to call report to NOLBERTO Dallas on ortho floor; RN unavailable, will call again in 10 minutes.
--- NOTE | 2021-11-16 16:45 | NUR ---
Report given to NOLBERTO Dallas on 4th floor ortho.
[2021-11-16 17:04] VITALS: BP 119/51
--- NOTE | 2021-11-16 17:10 | NUR ---
PT TRANSFERRED TO FLOOR, VSS, PT ALERT AND ORIENTED.
--- NOTE | 2021-11-16 18:50 | NUR ---
Problems reprioritized. Patient report given, questions answered & plan of care reviewed with LETICIA ARVIZU.
[2021-11-16] MEDS: enoxaparin 40mg/0.4ml syringe SQ SCH (19:03)
[2021-11-16] MEDS: insulin glargine (Lantus) pen - multi-dose SQ SCH (21:00)
[2021-11-16] MEDS: amitriptyline 50mg tablet PO SCH (21:19)
[2021-11-16] MEDS: HYDROcodone/acetaminophen 10/325mg tab PO PRN (21:20)
[2021-11-16 22:00] VITALS: BP 113/50
[2021-11-17] MEDS: HYDROmorphone 1 mg/ml syringe IV PRN ×2 (00:14→10:17)
[2021-11-17] MEDS: normal saline 1000ml 1,000 ML IV SCH ×3 (00:22→20:15)
[2021-11-17] MEDS: ibuprofen tablet 400 MG TABLET PO SCH ×3 (01:47→15:38)
[2021-11-17 05:57] LABS: BASOPHILS % (AUTO) 0.7 % (0-1); EOSINOPHILS # (AUTO) 0.4 X10'3 (0-0.9); EOSINOPHILS % (AUTO) 6.8 % (0-6); HEMATOCRIT 30.3 % (35.0-45.0); HEMOGLOBIN 9.7 g/dl (12.0-16.0); LYMPHOCYTES # (AUTO) 1.6 X10'3 (1.1-4.8); LYMPHOCYTES % (AUTO) 24.8 % (21-51); MEAN CORPUSCULAR HEMOGLOBIN 27.8 PG (27.0-31.0); MEAN CORPUSCULAR VOLUME 86.9 FL (78-98); MEAN PLATELET VOLUME 8.9 FL (7.4-10.4); MONOCYTES # (AUTO) 0.5 X10'3 (0-0.9); NEUTROPHILS # (AUTO) 3.9 X10'3 (1.8-7.7); NEUTROPHILS % (AUTO) 59.7 % (42-75); PLATELET COUNT 254 X10'3 (140-440); RED BLOOD COUNT 3.49 X10'6 (4.20-5.60); RED CELL DISTRIBUTION WIDTH 17.3 % (11.5-14.5); WHITE BLOOD COUNT 6.5 X10'3 (4.5-11.0)
[2021-11-17 06:13] LABS: ALANINE AMINOTRANSFERASE 15 U/L (12-78); ALBUMIN 2.2 G/DL (3.4-5.0); ALBUMIN/GLOBULIN RATIO 0.7 (1.1-1.5); ALKALINE PHOSPHATASE 89 IU/L (46-116); ANION GAP 2 (8-16); ASPARTATE AMINO TRANSFERASE 14 U/L (10-37); BILIRUBIN,TOTAL 0.2 MG/DL (0.1-1.0); BLOOD UREA NITROGEN 20 MG/DL (7-18); BUN/CREATININE RATIO 23.5 (6.6-38.0); CHLORIDE 110 MMOL/L (99-107); CREATININE 0.85 MG/DL (0.40-0.90); GLUCOSE 118 MG/DL (70-104); POTASSIUM 4.1 MMOL/L (3.5-5.1); SODIUM 139 MMOL/L (135-145); TOTAL CARBON DIOXIDE 26.8 MMOL/L (24-32); TOTAL PROTEIN 5.5 G/DL (6.4-8.2); eGFR 67 ML/MIN
[2021-11-17 06:19] LABS: % IRON SATURATION 27 % (11-46); IRON 65 UG/DL (49-151); TOTAL IRON BINDING CAPACITY 244 UG/DL (259-388)
--- NOTE | 2021-11-17 06:40 | NUR ---
Patient in room ORTHO 4011. I have received report from NOLBERTO Hernandez and had the opportunity to ask questions and assume patient care.
[2021-11-17 06:46] VITALS: BP 124/53
[2021-11-17] MEDS: atorvastatin 20mg tablet PO SCH (07:36)
[2021-11-17] MEDS: lisinopril 20mg tablet PO SCH (07:36)
[2021-11-17] MEDS: buPROPion SR 150mg tablet PO SCH ×2 (07:37→08:00)
[2021-11-17] MEDS: aspirin 81mg, enteric-coated 1 TAB TABLET.DR PO SCH (07:37)
[2021-11-17] MEDS: allopurinol 100mg tablet PO SCH (07:37)
[2021-11-17] MEDS: loratadine 10mg tablet PO SCH (07:37)
[2021-11-17] MEDS: sertraline 50mg tablet PO SCH (07:37)
[2021-11-17] MEDS: HYDROcodone/acetaminophen 10/325mg tab PO PRN ×3 (07:38→20:07)
[2021-11-17] MEDS: K and/or MAG REPLACEMENT MC SCH ×2 (08:00→20:00)
[2021-11-17] MEDS: docusate sod 100mg capsule PO SCH ×2 (08:00→19:58)
[2021-11-17 11:15] VITALS: BP 126/59
--- NOTE | 2021-11-17 11:40 | NUR ---
Noted pt with T2DM, well controlled with A1c 7.3%. Written DM education with RD contact information placed in patient's chart. Will continue to follow. Addendum: 11/17/21 at [address] Amended: Links added.
[2021-11-17 15:32] VITALS: BP 128/47
[2021-11-17 18:00] VITALS: BP 132/63
--- NOTE | 2021-11-17 18:12 | NUR ---
Problems reprioritized. Patient report given, questions answered & plan of care reviewed with NOLBERTO Hernandez.
[2021-11-17] MEDS: amitriptyline 50mg tablet PO SCH (20:06)
[2021-11-17] MEDS: enoxaparin 40mg/0.4ml syringe SQ SCH (20:07)
[2021-11-17] MEDS: insulin glargine (Lantus) pen - multi-dose SQ SCH (21:00)
--- NOTE | 2021-11-17 21:26 | NUR ---
Talked to pt regarding our diabetic protocol and insulin, as her Blood sugar was 268. Pt stated that she knows why her blood sugar is high "I ate candy, that's why it's high and I don't want insulin". Pt educated on a healthy alternative. Addendum: 11/17/21 at 2131 by Mary Velásquez RN Amended: Links added.
[2021-11-17 22:00] VITALS: BP 127/53
[2021-11-18] MEDS: normal saline 1000ml 1,000 ML IV SCH ×2 (05:41→18:03)
[2021-11-18 06:00] VITALS: BP 130/69
--- NOTE | 2021-11-18 06:15 | NUR ---
Problems reprioritized. Patient report given, questions answered & plan of care reviewed with Mylene ARVIZU. Addendum: 11/18/21 at 0616 by Mary Velásquez RN Amended: Links added.
[2021-11-18 06:25] LABS: BASOPHILS % (AUTO) 0.4 % (0-1); EOSINOPHILS # (AUTO) 0.5 X10'3 (0-0.9); EOSINOPHILS % (AUTO) 5.8 % (0-6); HEMATOCRIT 31.6 % (35.0-45.0); HEMOGLOBIN 10.2 g/dl (12.0-16.0); LYMPHOCYTES # (AUTO) 1.1 X10'3 (1.1-4.8); LYMPHOCYTES % (AUTO) 13.5 % (21-51); MEAN CORPUSCULAR HGB CONC 32.2 g/dL (33.0-36.5); MEAN CORPUSCULAR VOLUME 86.9 FL (78-98); MEAN PLATELET VOLUME 9.2 FL (7.4-10.4); MONOCYTES # (AUTO) 0.6 X10'3 (0-0.9); NEUTROPHILS # (AUTO) 5.6 X10'3 (1.8-7.7); NEUTROPHILS % (AUTO) 72.3 % (42-75); PLATELET COUNT 263 X10'3 (140-440); RED BLOOD COUNT 3.64 X10'6 (4.20-5.60); RED CELL DISTRIBUTION WIDTH 17.4 % (11.5-14.5); WHITE BLOOD COUNT 7.8 X10'3 (4.5-11.0)
[2021-11-18 06:42] LABS: ALANINE AMINOTRANSFERASE 14 U/L (12-78); ALBUMIN 2.2 G/DL (3.4-5.0); ALBUMIN/GLOBULIN RATIO 0.6 (1.1-1.5); ALKALINE PHOSPHATASE 89 IU/L (46-116); ANION GAP 7 (8-16); ASPARTATE AMINO TRANSFERASE 15 U/L (10-37); BILIRUBIN,TOTAL 0.2 MG/DL (0.1-1.0); BLOOD UREA NITROGEN 19 MG/DL (7-18); BUN/CREATININE RATIO 24.1 (6.6-38.0); CALCIUM 8.5 MG/DL (8.5-10.1); CHLORIDE 109 MMOL/L (99-107); CREATININE 0.79 MG/DL (0.40-0.90); GLUCOSE 127 MG/DL (70-104); POTASSIUM 4.4 MMOL/L (3.5-5.1); SODIUM 142 MMOL/L (135-145); TOTAL CARBON DIOXIDE 25.7 MMOL/L (24-32); TOTAL PROTEIN 5.8 G/DL (6.4-8.2); eGFR 73 ML/MIN
[2021-11-18] MEDS: K and/or MAG REPLACEMENT MC SCH ×2 (07:41→20:00)
[2021-11-18] MEDS: allopurinol 100mg tablet PO SCH (07:41)
[2021-11-18] MEDS: atorvastatin 20mg tablet PO SCH (07:41)
[2021-11-18] MEDS: HYDROcodone/acetaminophen 10/325mg tab PO PRN (07:42)
[2021-11-18] MEDS: ibuprofen tablet 400 MG TABLET PO SCH ×3 (07:42→16:52)
[2021-11-18] MEDS: docusate sod 100mg capsule PO SCH ×2 (07:42→20:00)
[2021-11-18] MEDS: aspirin 81mg, enteric-coated 1 TAB TABLET.DR PO SCH (07:43)
[2021-11-18] MEDS: loratadine 10mg tablet PO SCH (07:43)
[2021-11-18] MEDS: buPROPion SR 150mg tablet PO SCH ×2 (07:43→08:00)
[2021-11-18] MEDS: sertraline 50mg tablet PO SCH (07:43)
[2021-11-18] MEDS: lisinopril 20mg tablet PO SCH (07:44)
[2021-11-18 10:00] VITALS: BP 114/66
[2021-11-18] MEDS: HYDROmorphone 1 mg/ml syringe IV PRN (10:32)
[2021-11-18] MEDS ORDERED: oxyCODONE/APAP 5-325mg tablet PO PRN (12:10)
[2021-11-18] MEDS: oxyCODONE/APAP 10/325mg tablet PO PRN (16:52)
[2021-11-18 18:00] VITALS: BP 150/77
--- NOTE | 2021-11-18 18:14 | NUR ---
Report given to Guilherme ARVIZU, patient eating dinner in bed, no current concerns or issues at this time.
--- NOTE | 2021-11-18 18:50 | NUR ---
Patient in room ORTHO 4014. I have received report from NOLBERTO Chakraborty and had the opportunity to ask questions and assume patient care.
[2021-11-18] MEDS: amitriptyline 50mg tablet PO SCH (20:59)
[2021-11-18] MEDS: insulin glargine (Lantus) pen - multi-dose SQ SCH (21:00)
[2021-11-18] MEDS: enoxaparin 40mg/0.4ml syringe SQ SCH (21:02)
[2021-11-18 22:00] VITALS: BP 146/69
[2021-11-19] MEDS: oxyCODONE/APAP 10/325mg tablet PO PRN ×3 (04:00→19:10)
[2021-11-19] MEDS: normal saline 1000ml 1,000 ML IV SCH ×2 (04:02→15:27)
[2021-11-19 05:00] VITALS: BP 153/84
[2021-11-19 06:18] LABS: ALANINE AMINOTRANSFERASE 14 U/L (12-78); ALBUMIN 2.3 G/DL (3.4-5.0); ALBUMIN/GLOBULIN RATIO 0.6 (1.1-1.5); ALKALINE PHOSPHATASE 93 IU/L (46-116); ANION GAP 8 (8-16); ASPARTATE AMINO TRANSFERASE 14 U/L (10-37); BASOPHILS % (AUTO) 0.3 % (0-1); BILIRUBIN,TOTAL 0.2 MG/DL (0.1-1.0); BLOOD UREA NITROGEN 15 MG/DL (7-18); BUN/CREATININE RATIO 20.5 (6.6-38.0); CALCIUM 8.5 MG/DL (8.5-10.1); CHLORIDE 108 MMOL/L (99-107); CREATININE 0.73 MG/DL (0.40-0.90); EOSINOPHILS # (AUTO) 0.4 X10'3 (0-0.9); EOSINOPHILS % (AUTO) 6.1 % (0-6); GLUCOSE 146 MG/DL (70-104); HEMATOCRIT 31.8 % (35.0-45.0); HEMOGLOBIN 10.3 g/dl (12.0-16.0); LYMPHOCYTES # (AUTO) 0.8 X10'3 (1.1-4.8); LYMPHOCYTES % (AUTO) 11.3 % (21-51); MEAN CORPUSCULAR HEMOGLOBIN 28.2 PG (27.0-31.0); MEAN CORPUSCULAR HGB CONC 32.6 g/dL (33.0-36.5); MEAN CORPUSCULAR VOLUME 86.5 FL (78-98); MEAN PLATELET VOLUME 8.9 FL (7.4-10.4); MONOCYTES # (AUTO) 0.5 X10'3 (0-0.9); MONOCYTES % (AUTO) 7.4 % (2-12); NEUTROPHILS # (AUTO) 5.1 X10'3 (1.8-7.7); NEUTROPHILS % (AUTO) 74.9 % (42-75); PLATELET COUNT 264 X10'3 (140-440); POTASSIUM 3.9 MMOL/L (3.5-5.1); RED BLOOD COUNT 3.67 X10'6 (4.20-5.60); RED CELL DISTRIBUTION WIDTH 16.8 % (11.5-14.5); SODIUM 141 MMOL/L (135-145); TOTAL CARBON DIOXIDE 25.3 MMOL/L (24-32); TOTAL PROTEIN 5.9 G/DL (6.4-8.2); WHITE BLOOD COUNT 6.8 X10'3 (4.5-11.0); eGFR 80 ML/MIN
--- NOTE | 2021-11-19 06:24 | NUR ---
Problems reprioritized. Patient report given, questions answered & plan of care reviewed with NOLBERTO Chakraborty.
[2021-11-19] MEDS: K and/or MAG REPLACEMENT MC SCH ×2 (07:03→20:00)
--- NOTE | 2021-11-19 07:51 | NUR ---
Initial: pt admitted w/ L ankle fracture s/p fall per EMR. Currently on Heart Healthy/CCHO diet w/ 100% intake of meals meeting est nutrient needs at this time. LBM 11/15 receiving routine colace. Consider additional bowel care if constipation persists and MD agreeable. Will continue to monitor. Recs: 1. Continue Carb control diet; consider removing Heart Healthy 2. Double protein WB for satiety 3. Routine bowel care 4. Scaled wts Addendum: 11/19/21 at [address] Amended: Links added.
[2021-11-19] MEDS: loratadine 10mg tablet PO SCH (08:31)
[2021-11-19] MEDS: atorvastatin 20mg tablet PO SCH (08:31)
[2021-11-19] MEDS: sertraline 50mg tablet PO SCH (08:31)
[2021-11-19] MEDS: docusate sod 100mg capsule PO SCH ×2 (08:31→19:54)
[2021-11-19] MEDS: aspirin 81mg, enteric-coated 1 TAB TABLET.DR PO SCH (08:32)
[2021-11-19] MEDS: ibuprofen tablet 400 MG TABLET PO SCH ×4 (08:32→23:56)
[2021-11-19] MEDS: allopurinol 100mg tablet PO SCH (08:32)
[2021-11-19] MEDS: buPROPion SR 150mg tablet PO SCH (08:32)
[2021-11-19] MEDS: lisinopril 20mg tablet PO SCH (08:33)
[2021-11-19 10:00] VITALS: BP 151/71
[2021-11-19 18:00] VITALS: BP 169/62
[2021-11-19] MEDS ORDERED: hydrALAZINE 20mg/ml inj. IV PRN (18:25)
--- NOTE | 2021-11-19 18:40 | NUR ---
REPORT GIVEN TO VANESSA RN AND 7TH GRADE SOCIAL STUDIES TEACHER PRECEPTING. PT IS RESTING COMFORTABLY AT THIS TIME
[2021-11-19 19:00] VITALS: BP 137/60
[2021-11-19] MEDS: enoxaparin 40mg/0.4ml syringe SQ SCH (19:55)
[2021-11-19] MEDS: insulin glargine (Lantus) pen - multi-dose SQ SCH (21:00)
[2021-11-19] MEDS: amitriptyline 50mg tablet PO SCH (21:10)
[2021-11-19 22:00] VITALS: BP 151/74
[2021-11-20] MEDS: oxyCODONE/APAP 10/325mg tablet PO PRN ×3 (05:10→19:29)
[2021-11-20 06:00] VITALS: BP 151/66
[2021-11-20] MEDS ORDERED: ceFAZolin inj. 3,000 MG in normal saline 100ml IV soln 100 ML IV ONE ×2 (06:00→16:45)
[2021-11-20 06:45] LABS: BASOPHILS % (AUTO) 0.3 % (0-1); EOSINOPHILS # (AUTO) 0.4 X10'3 (0-0.9); EOSINOPHILS % (AUTO) 6.7 % (0-6); HEMOGLOBIN 10.4 g/dl (12.0-16.0); LYMPHOCYTES % (AUTO) 15.4 % (21-51); MEAN CORPUSCULAR HEMOGLOBIN 28.1 PG (27.0-31.0); MEAN CORPUSCULAR HGB CONC 32.6 g/dL (33.0-36.5); MEAN CORPUSCULAR VOLUME 86.3 FL (78-98); MEAN PLATELET VOLUME 8.7 FL (7.4-10.4); MONOCYTES # (AUTO) 0.6 X10'3 (0-0.9); MONOCYTES % (AUTO) 8.4 % (2-12); NEUTROPHILS # (AUTO) 4.6 X10'3 (1.8-7.7); NEUTROPHILS % (AUTO) 69.2 % (42-75); PLATELET COUNT 275 X10'3 (140-440); RED CELL DISTRIBUTION WIDTH 17.1 % (11.5-14.5); WHITE BLOOD COUNT 6.7 X10'3 (4.5-11.0)
[2021-11-20 07:02] LABS: ALANINE AMINOTRANSFERASE 13 U/L (12-78); ALBUMIN 2.3 G/DL (3.4-5.0); ALBUMIN/GLOBULIN RATIO 0.7 (1.1-1.5); ALKALINE PHOSPHATASE 95 IU/L (46-116); ANION GAP 6 (8-16); ASPARTATE AMINO TRANSFERASE 14 U/L (10-37); BILIRUBIN,TOTAL 0.3 MG/DL (0.1-1.0); BLOOD UREA NITROGEN 13 MG/DL (7-18); BUN/CREATININE RATIO 16.7 (6.6-38.0); CALCIUM 8.2 MG/DL (8.5-10.1); CHLORIDE 109 MMOL/L (99-107); CREATININE 0.78 MG/DL (0.40-0.90); GLUCOSE 127 MG/DL (70-104); POTASSIUM 3.9 MMOL/L (3.5-5.1); SODIUM 143 MMOL/L (135-145); TOTAL CARBON DIOXIDE 27.7 MMOL/L (24-32); TOTAL PROTEIN 5.8 G/DL (6.4-8.2); eGFR 74 ML/MIN
[2021-11-20] MEDS: loratadine 10mg tablet PO SCH (07:53)
[2021-11-20] MEDS: atorvastatin 20mg tablet PO SCH (07:53)
[2021-11-20] MEDS: sertraline 50mg tablet PO SCH (07:54)
[2021-11-20] MEDS: buPROPion SR 150mg tablet PO SCH (07:54)
[2021-11-20] MEDS: ibuprofen tablet 400 MG TABLET PO SCH ×2 (07:54→16:30)
[2021-11-20] MEDS: lisinopril 20mg tablet PO SCH (07:54)
[2021-11-20] MEDS: aspirin 81mg, enteric-coated 1 TAB TABLET.DR PO SCH (07:54)
[2021-11-20] MEDS: docusate sod 100mg capsule PO SCH ×2 (07:55→19:28)
[2021-11-20] MEDS: allopurinol 100mg tablet PO SCH (07:55)
[2021-11-20] MEDS: K and/or MAG REPLACEMENT MC SCH ×2 (08:00→20:37)
[2021-11-20 10:00] VITALS: BP 139/55
[2021-11-20] MEDS: normal saline 1000ml 1,000 ML IV SCH ×2 (11:31)
[2021-11-20 14:00] VITALS: BP 172/73
[2021-11-20 18:00] VITALS: BP 151/70
[2021-11-20] MEDS: enoxaparin 40mg/0.4ml syringe SQ SCH (19:27)
[2021-11-20] MEDS: insulin glargine (Lantus) pen - multi-dose SQ SCH (21:00)
[2021-11-20] MEDS: amitriptyline 50mg tablet PO SCH (21:05)
[2021-11-20 22:00] VITALS: BP 142/74
[2021-11-21] MEDS: ibuprofen tablet 400 MG TABLET PO SCH ×3 (00:50→17:39)
[2021-11-21] MEDS: normal saline 1000ml 1,000 ML IV SCH ×3 (05:01→17:58)
[2021-11-21] MEDS: oxyCODONE/APAP 10/325mg tablet PO PRN ×3 (05:08→17:38)
[2021-11-21 06:00] VITALS: BP 146/77
[2021-11-21] MEDS ORDERED: ceFAZolin inj. 3,000 MG in normal saline 100ml IV soln 100 ML IV ONE (06:00)
--- NOTE | 2021-11-21 06:00 | NUR ---
agree with cristhian zapata's physical assessment.
[2021-11-21 06:38] LABS: BASOPHILS % (AUTO) 0.4 % (0-1); EOSINOPHILS # (AUTO) 0.5 X10'3 (0-0.9); HEMATOCRIT 32.1 % (35.0-45.0); HEMOGLOBIN 10.3 g/dl (12.0-16.0); LYMPHOCYTES # (AUTO) 0.9 X10'3 (1.1-4.8); LYMPHOCYTES % (AUTO) 11.1 % (21-51); MEAN CORPUSCULAR HEMOGLOBIN 27.4 PG (27.0-31.0); MEAN CORPUSCULAR HGB CONC 31.9 g/dL (33.0-36.5); MEAN CORPUSCULAR VOLUME 85.7 FL (78-98); MONOCYTES # (AUTO) 0.7 X10'3 (0-0.9); MONOCYTES % (AUTO) 8.4 % (2-12); NEUTROPHILS # (AUTO) 6.3 X10'3 (1.8-7.7); NEUTROPHILS % (AUTO) 74.1 % (42-75); PLATELET COUNT 265 X10'3 (140-440); RED BLOOD COUNT 3.75 X10'6 (4.20-5.60); RED CELL DISTRIBUTION WIDTH 17.3 % (11.5-14.5); WHITE BLOOD COUNT 8.5 X10'3 (4.5-11.0)
[2021-11-21 06:45] LABS: ALANINE AMINOTRANSFERASE 15 U/L (12-78); ALBUMIN 2.3 G/DL (3.4-5.0); ALBUMIN/GLOBULIN RATIO 0.7 (1.1-1.5); ALKALINE PHOSPHATASE 94 IU/L (46-116); ANION GAP 3 (8-16); ASPARTATE AMINO TRANSFERASE 12 U/L (10-37); BILIRUBIN,TOTAL 0.2 MG/DL (0.1-1.0); BLOOD UREA NITROGEN 13 MG/DL (7-18); BUN/CREATININE RATIO 15.7 (6.6-38.0); CALCIUM 8.4 MG/DL (8.5-10.1); CHLORIDE 106 MMOL/L (99-107); CREATININE 0.83 MG/DL (0.40-0.90); GLUCOSE 127 MG/DL (70-104); POTASSIUM 3.9 MMOL/L (3.5-5.1); SODIUM 136 MMOL/L (135-145); TOTAL CARBON DIOXIDE 27.3 MMOL/L (24-32); TOTAL PROTEIN 5.8 G/DL (6.4-8.2); eGFR 69 ML/MIN
[2021-11-21] MEDS: K and/or MAG REPLACEMENT MC SCH ×2 (08:00→20:00)
[2021-11-21] MEDS: aspirin 81mg, enteric-coated 1 TAB TABLET.DR PO SCH (08:47)
[2021-11-21] MEDS: loratadine 10mg tablet PO SCH (08:47)
[2021-11-21] MEDS: buPROPion SR 150mg tablet PO SCH (08:47)
[2021-11-21] MEDS: docusate sod 100mg capsule PO SCH ×2 (08:47→20:44)
[2021-11-21] MEDS: atorvastatin 20mg tablet PO SCH (08:47)
[2021-11-21] MEDS: lisinopril 20mg tablet PO SCH (08:48)
[2021-11-21] MEDS: allopurinol 100mg tablet PO SCH (08:48)
[2021-11-21] MEDS: sertraline 50mg tablet PO SCH (08:48)
[2021-11-21 10:00] VITALS: BP 139/69
[2021-11-21 18:00] VITALS: BP 104/77
[2021-11-21] MEDS: enoxaparin 40mg/0.4ml syringe SQ SCH (18:22)
[2021-11-21] MEDS: amitriptyline 50mg tablet PO SCH (20:44)
[2021-11-21] MEDS: insulin glargine (Lantus) pen - multi-dose SQ SCH (21:00)
[2021-11-21 22:00] VITALS: BP 136/46
[2021-11-22] MEDS: oxyCODONE/APAP 10/325mg tablet PO PRN ×3 (00:56→15:19)
[2021-11-22] MEDS: normal saline 1000ml 1,000 ML IV SCH ×2 (05:03→19:34)
[2021-11-22] MEDS ORDERED: ceFAZolin inj. 3,000 MG in normal saline 100ml IV soln 100 ML IV ONE ×2 (05:30→07:30)
--- NOTE | 2021-11-22 06:19 | NUR ---
Received report from Kisha, RN
[2021-11-22 06:36] VITALS: BP 132/79
[2021-11-22] MEDS: loratadine 10mg tablet PO SCH (07:50)
[2021-11-22] MEDS: allopurinol 100mg tablet PO SCH (07:50)
[2021-11-22] MEDS: atorvastatin 20mg tablet PO SCH (07:50)
[2021-11-22] MEDS: sertraline 50mg tablet PO SCH (07:50)
[2021-11-22] MEDS: buPROPion SR 150mg tablet PO SCH (07:50)
[2021-11-22] MEDS: ibuprofen tablet 400 MG TABLET PO SCH ×3 (07:51→16:00)
[2021-11-22] MEDS: aspirin 81mg, enteric-coated 1 TAB TABLET.DR PO SCH (07:51)
[2021-11-22] MEDS: lisinopril 20mg tablet PO SCH (07:52)
[2021-11-22] MEDS: K and/or MAG REPLACEMENT MC SCH ×2 (08:00→20:00)
[2021-11-22] MEDS: docusate sod 100mg capsule PO SCH ×2 (08:00→20:00)
[2021-11-22 08:56] LABS: BASOPHILS % (AUTO) 0.5 % (0-1); EOSINOPHILS # (AUTO) 0.4 X10'3 (0-0.9); EOSINOPHILS % (AUTO) 4.9 % (0-6); MEAN CORPUSCULAR HEMOGLOBIN 27.3 PG (27.0-31.0); MEAN CORPUSCULAR HGB CONC 31.9 g/dL (33.0-36.5); MEAN CORPUSCULAR VOLUME 85.7 FL (78-98); MEAN PLATELET VOLUME 9.2 FL (7.4-10.4); MONOCYTES # (AUTO) 0.6 X10'3 (0-0.9); MONOCYTES % (AUTO) 6.8 % (2-12); NEUTROPHILS # (AUTO) 6.8 X10'3 (1.8-7.7); NEUTROPHILS % (AUTO) 76.8 % (42-75); PRE OP HEMATOCRIT 32.4 % (35.0-45.0); PRE OP PLATELET COUNT 267 X10'3 (140-440); RED BLOOD COUNT 3.77 X10'6 (4.20-5.60); RED CELL DISTRIBUTION WIDTH 17.3 % (11.5-14.5)
[2021-11-22 08:59] LABS: PRE OP HEMOGLOBIN 10.3 g/dL (12.0-16.0)
[2021-11-22 09:13] LABS: ALANINE AMINOTRANSFERASE 16 U/L (12-78); ALBUMIN 2.4 G/DL (3.4-5.0); ALBUMIN/GLOBULIN RATIO 0.7 (1.1-1.5); ALKALINE PHOSPHATASE 101 IU/L (46-116); ASPARTATE AMINO TRANSFERASE 19 U/L (10-37); BILIRUBIN,TOTAL 0.2 MG/DL (0.1-1.0); BLOOD UREA NITROGEN 15 MG/DL (7-18); BUN/CREATININE RATIO 18.8 (6.6-38.0); CALCIUM 8.6 MG/DL (8.5-10.1); CHLORIDE 105 MMOL/L (99-107); GLUCOSE 190 MG/DL (70-104); POTASSIUM 4.2 MMOL/L (3.5-5.1); SODIUM 140 MMOL/L (135-145); eGFR 72 ML/MIN
[2021-11-22 09:21] LABS: ANION GAP 8 (8-16); TOTAL CARBON DIOXIDE 26.6 MMOL/L (24-32)
[2021-11-22 10:00] VITALS: BP 115/55
--- NOTE | 2021-11-22 10:45 | NUR ---
called [facility] about speciality bed, ordered speciality bed [facility] order, order # [id number]
[2021-11-22 11:45] VITALS: BP 115/55
--- NOTE | 2021-11-22 15:36 | NUR ---
PRESSURE ULCER EDUCATION: DEFINITION: A pressure ulcer is an area of skin that breaks down when you stay in one position too long. The constant pressure against the skin reduces the blood flow to that area and the affected tissue dies. CAUSES: "Being bedridden or in a wheelchair "Fragile skin "Having a chronic condition, such as diabetes or vascular disease "Inability to move certain parts of your body without assistance "Older age "Incontinence of urine or stool SYMPTOMS: "A reddened area that DOES NOT turn white when pressed on - this can be the beginning of a pressure ulcer "A blister, deep sore or a crater - these can be advanced pressure ulcers FIRST AID: "Relieve the pressure on this area "Keep the area clean and dry "Call your primary doctor if you see any of the above symptoms "DO NOT massage the area "DO NOT use a donut shaped or ring shaped pillow- these actually interfere with the blood flow and cause complications PREVENTION: "Check for pressure ulcers everyday "Change position at least every two hours to relieve pressure "Use items that help relieve pressure- pillows, sheepskin, foam padding, and powders. "Keep skin clean and dry "Eat healthy well balanced meals "Exercise daily IF YOU SEE ANY OF THESE SYMPTOMS WHILE IN THE HOSPITAL - TELL YOUR NURSE IMMEDIATELY. IF YOU SEE ANY OF THESE SYMPTOMS WHILE AT HOME OR HAVE ANY QUESTIONS OR CONCERNS ABOUT PRESSURE ULCERS - CALL YOUR PRIMARY DOCTOR IMMEDIATELY. Addendum: 11/22/21 at 1537 by Fay Gutierrez RN Amended: Links added.
--- NOTE | 2021-11-22 15:43 | NUR ---
PAGER ID: [phone] MESSAGE: [phone], [place] patient is to go to surgery to get external fixator on left leg, only has percocet ordered every 6 hours and no iv medications. Can i get it Q4 and something for breakthrough if i need it? Thanks! Sandra 1980
--- NOTE | 2021-11-22 16:45 | NUR ---
Report given to NOLBERTO Valdes
--- NOTE | 2021-11-22 17:53 | NUR ---
spoke to keanu in recovery to give report per keanu they did not know what room patient was going to and techs would be up to get her when ready. surgery scheduled at 1700 patient has not left floor
--- NOTE | 2021-11-22 17:59 | NUR ---
per OR charge weigher patient is following another surgery that still has 1-2 hours and they will send for patient closer to then, ancef present in chart per request.
[2021-11-22 18:00] VITALS: BP 142/61
[2021-11-22] MEDS: enoxaparin 40mg/0.4ml syringe SQ SCH (18:01)
--- NOTE | 2021-11-22 18:36 | NUR ---
Gave report to NOLBERTO Sutton
--- NOTE | 2021-11-22 18:45 | NUR ---
Patient in room ORTHO 4014. I have received report from Sandra ARVIZU and had the opportunity to ask questions and assume patient care.
[2021-11-22] MEDS: insulin glargine (Lantus) pen - multi-dose SQ SCH (20:58)
[2021-11-22] MEDS: amitriptyline 50mg tablet PO SCH (21:00)
[2021-11-22] MEDS: HYDROmorphone inj. 0.5 MG/0.5 ML DISP.SYRIN IV PRN (21:05)
--- NOTE | 2021-11-22 21:36 | NUR ---
Dr. Ayala at bedside updating pt and her son about the delay in surgery. Surgery has been rescheduled for 2am tonight.
[2021-11-22 22:00] VITALS: BP 164/70
[2021-11-23] VITALS (14 sets, daily range): BP systolic 105–158; BP diastolic 58–92
--- NOTE | 2021-11-23 02:45 | NUR ---
Nursing fiberglass pipe covering supervisor Jacque at bedside with RN, updated pt and son Jorge that the surgery has been canceled again and rescheduled for tomorrow afternoon at 1530. Warmed up dinner tray for pt. Will make NPO after.
--- NOTE | 2021-11-23 02:48 | NUR ---
Luis Migule Patel - [phone] CALL WITH UPDATES
[2021-11-23] MEDS: oxyCODONE/APAP 10/325mg tablet PO PRN ×2 (03:02→09:53)
[2021-11-23] MEDS: amitriptyline 50mg tablet PO SCH ×2 (03:06→23:29)
--- NOTE | 2021-11-23 03:06 | NUR ---
Called Hospitalist per pt request to take her scheduled amitriptyline 100mg. Held 2100 dose due to pt NPO for surgery gave orders to give scheduled dose now.
[2021-11-23] MEDS: normal saline 1000ml 1,000 ML IV SCH ×2 (04:11→14:55)
--- NOTE | 2021-11-23 06:17 | NUR ---
Problems reprioritized. Patient report given, questions answered & plan of care reviewed with Sandra ARVIZU. Addendum: 11/24/21 at 0620 by Mary Velásquez RN Amended: Links added.
--- NOTE | 2021-11-23 06:24 | NUR ---
Problems reprioritized. Patient report given, questions answered & plan of care reviewed with Sandra ARVIZU.
--- NOTE | 2021-11-23 06:40 | NUR ---
received report from NOLBERTO Sutton
[2021-11-23] MEDS: ibuprofen tablet 400 MG TABLET PO SCH ×4 (08:00→23:29)
[2021-11-23] MEDS: atorvastatin 20mg tablet PO SCH (08:00)
[2021-11-23] MEDS: aspirin 81mg, enteric-coated 1 TAB TABLET.DR PO SCH (08:00)
[2021-11-23] MEDS: docusate sod 100mg capsule PO SCH ×2 (08:00→22:56)
[2021-11-23] MEDS: buPROPion SR 150mg tablet PO SCH (08:00)
[2021-11-23] MEDS: lisinopril 20mg tablet PO SCH (08:00)
[2021-11-23] MEDS: allopurinol 100mg tablet PO SCH (08:00)
[2021-11-23] MEDS ORDERED: VANCOMYCIN 1,500MG inj. 1,500 MG in normal saline 500ml IV soln 300 ML IV ONE ×2 (08:00→20:00)
[2021-11-23] MEDS: K and/or MAG REPLACEMENT MC SCH ×2 (08:00→22:56)
[2021-11-23] MEDS: loratadine 10mg tablet PO SCH (09:05)
[2021-11-23] MEDS: sertraline 50mg tablet PO SCH (09:06)
[2021-11-23 14:03] LABS: % IRON SATURATION 18 % (11-46); IRON 48 UG/DL (49-151); TOTAL IRON BINDING CAPACITY 260 UG/DL (259-388)
[2021-11-23] MEDS: HYDROmorphone inj. 0.5 MG/0.5 ML DISP.SYRIN IV PRN (14:10)
--- NOTE | 2021-11-23 14:42 | NUR ---
Had patients preop antibiotics this am and pharmacy took them from [facility] so this RN messaged pharmacy they stated that the antibiotics had been delivered (on neither side of the nurses station) and so this RN then called back and they stated that it was in pas or pacu, called their RN station antibiotics not there. Placed call to pharmacy and they said they were going to come to the floor to help, so far no one has arrived.
[2021-11-23] MEDS ORDERED: ceFAZolin inj. 3,000 MG in normal saline 100ml IV soln 100 ML IV ONE (14:50)
[2021-11-23] MEDS ORDERED: fentaNYL/PF 50MCG/1 ML 2ML syringe IV PRN ×2 (14:55)
[2021-11-23] MEDS ORDERED: labetalol 20mg/4ml (5mg/ml) syringe IV PRN (14:55)
[2021-11-23] MEDS ORDERED: ringers solution, lacted 1,000 ML IV SCH ×2 (14:55→17:35)
[2021-11-23] MEDS ORDERED: morphine 2 MG/ML inj. syringe IV PRN ×2 (14:55→17:35)
[2021-11-23] MEDS ORDERED: hydrALAZINE 20mg/ml inj. IV PRN (14:55)
[2021-11-23] MEDS ORDERED: ondansetron/PF 4mg/2ml inj IV PRN ×3 (14:55→21:50)
[2021-11-23] MEDS ORDERED: morphine 4 MG/ML inj SYRINge IV PRN ×2 (14:55→17:35)
--- NOTE | 2021-11-23 15:21 | NUR ---
Called recovery to give report spoke to NOLBERTO Jama
[2021-11-23] MEDS ORDERED: desflurane 240ml liquid inh. IH ONE (16:33)
[2021-11-23] MEDS ORDERED: LIDOcaine 1% (10mg/ml)w/preservative inj. 20ml MDV ONE (16:33)
[2021-11-23] MEDS ORDERED: midazolam 1 mg/ML 2ml injection ONE (16:45)
[2021-11-23] MEDS ORDERED: fentaNYL /PF 50mcg/ml 5ml ampule ONE (16:48)
[2021-11-23] MEDS ORDERED: proCHLORperazine 10 MG/2 ml inj IV PRN (17:35)
[2021-11-23] MEDS ORDERED: meperidine/PF 25mg/ml syringe IV PRN ×3 (17:35)
[2021-11-23] MEDS ORDERED: propofol inj 20 ML IV ONE ×2 (18:18)
[2021-11-23] MEDS ORDERED: dexamethasone sod phosphate 4mg/ml inj. ONE (18:19)
[2021-11-23] MEDS ORDERED: rocuronium 10mg/ml inj IV ONE (18:19)
--- NOTE | 2021-11-23 18:25 | NUR ---
Gave report to NOLBERTO Hernandez and NOLBERTO Alvarenga
[2021-11-23] MEDS ORDERED: bacitracin 15gm ointment TP ONE (19:54)
[2021-11-23] MEDS: enoxaparin 40mg/0.4ml syringe SQ SCH (20:00)
[2021-11-23] MEDS ORDERED: morphine 4 MG/ML inj SYRINge ONE (20:33)
[2021-11-23] MEDS: insulin glargine (Lantus) pen - multi-dose SQ SCH (21:00)
[2021-11-23] MEDS ORDERED: ceFAZolin 1000mg inj ONE (21:00)
[2021-11-23] MEDS ORDERED: ePHEDrine 50MG/ML INJ. ONE (21:03)
[2021-11-23] MEDS ORDERED: ondansetron/PF 4mg/2ml inj ONE (21:04)
[2021-11-23] MEDS ORDERED: naloxone 0.4 mg/ml inj IV PRN (21:50)
[2021-11-23] MEDS ORDERED: magnesium hydroxide 30ml (MOM) UD suspension PO PRN (21:50)
[2021-11-23] MEDS ORDERED: diphenhydrAMINE 25mg capsule PO PRN ×2 (21:50)
[2021-11-23] MEDS ORDERED: bisacodyl 10mg suppository rectal RC PRN (21:50)
[2021-11-23] MEDS ORDERED: HYDROmorphone inj. 0.5 MG/0.5 ML DISP.SYRIN IV PRN (21:50)
[2021-11-23] MEDS ORDERED: acetaminophen 325mg tablet PO PRN (21:50)
--- NOTE | 2021-11-23 21:55 | NUR ---
PT ARRIVED TO RR VIA BED ACCOMPANIED BY DR BLANCO, ANESTHESIA REPORT GIVEN-VSS, , PT AWAKE ASKING QUESTIONS ABOUT SURGERY, DENIES PAIN, LEFT FOOT-SPLINTED AND WRAPPED-CDI, TOES PINK, WARM, +CAP REFILL, SCD TO NON-OP LEG, PIV 20G TO RIGHT FA, F/C STILL IN PLACE PRIOR TO SX.
--- NOTE | 2021-11-23 22:44 | NUR ---
Report given to me by Surekha ARVIZU from recovery room and I gave report to Mary ARVIZU about the surgery.
--- NOTE | 2021-11-23 22:50 | NUR ---
Pt arrived to floor talkative with no c/o pain. Pt ate in recovery rm and requesting more food. O2 nc @2 L. f/c in place draining clear yellow urine. Left lower extremity with soft cast/splint drew wrap, No drainage in hemovac or its tubing. Pt able to wiggle toes, however, sensation is absent at this time. Toes are warm to touch. Addendum: 11/24/21 at 0226 by Mary Velásquez RN Amended: Links added.
--- NOTE | 2021-11-23 22:55 | NUR ---
PT AWAKE AND TOLERATING CRACKERS AND WATER, VSS, DENIES PAIN, ABLE TO WIGGLE TOES-BLOCK STILL WORKING, NO CHANGES TO CSM OR DRSG, ICE AND ELEVATION TO LEFT FOOT, HEMOVAC IN PLACE-NO DRAINAGE NOTED. REPORT CALLED TO COAT JOINERCLARENCE, ALL QUESTIONS ANSWERED. TAKEN VIA BED BACK TO ROOM 4014A, PRIMARY RN IN ROOM TO RECEIVE PT, NO FURTHER CHANGES OR QUESTIONS AT THIS TIME.
[2021-11-23] MEDS: potassium cl 20mEq in 1/2 NS 1,000 ML IV SCH (23:20)
[2021-11-24 00:15] VITALS: BP 127/72
[2021-11-24] MEDS: normal saline 1000ml 1,000 ML IV SCH ×3 (00:35→20:55)
[2021-11-24 00:45] VITALS: BP 123/61
[2021-11-24 01:45] VITALS: BP 123/69
[2021-11-24 02:45] VITALS: BP 103/48
[2021-11-24] MEDS: oxyCODONE/APAP 10/325mg tablet PO PRN ×2 (05:39→23:05)
[2021-11-24] MEDS: potassium cl 20mEq in 1/2 NS 1,000 ML IV SCH ×3 (05:50→19:02)
[2021-11-24 06:30] LABS: BASOPHILS % (AUTO) 0.1 % (0-1); EOSINOPHILS % (AUTO) 0 % (0-6); HEMATOCRIT 29.5 % (35.0-45.0); HEMOGLOBIN 9.4 g/dl (12.0-16.0); LYMPHOCYTES # (AUTO) 0.4 X10'3 (1.1-4.8); LYMPHOCYTES % (AUTO) 3.9 % (21-51); MEAN CORPUSCULAR HEMOGLOBIN 27.8 PG (27.0-31.0); MEAN CORPUSCULAR HGB CONC 32.1 g/dL (33.0-36.5); MEAN CORPUSCULAR VOLUME 86.6 FL (78-98); MONOCYTES # (AUTO) 0.4 X10'3 (0-0.9); NEUTROPHILS # (AUTO) 10.2 X10'3 (1.8-7.7); PLATELET COUNT 256 X10'3 (140-440); RED CELL DISTRIBUTION WIDTH 16.9 % (11.5-14.5); WHITE BLOOD COUNT 11.1 X10'3 (4.5-11.0)
--- NOTE | 2021-11-24 06:40 | NUR ---
Received report from Mary ARVIZU.
[2021-11-24 06:45] LABS: ANION GAP 8 (8-16); CHLORIDE 106 MMOL/L (99-107); POTASSIUM 4.5 MMOL/L (3.5-5.1); SODIUM 141 MMOL/L (135-145)
[2021-11-24] MEDS: lisinopril 20mg tablet PO SCH (08:00)
[2021-11-24] MEDS: K and/or MAG REPLACEMENT MC SCH ×2 (08:00→20:00)
[2021-11-24] MEDS: aspirin 81mg, enteric-coated 1 TAB TABLET.DR PO SCH (08:53)
[2021-11-24] MEDS: atorvastatin 20mg tablet PO SCH (08:53)
[2021-11-24] MEDS: allopurinol 100mg tablet PO SCH (08:53)
[2021-11-24] MEDS: docusate sod 100mg capsule PO SCH ×2 (08:54→21:35)
[2021-11-24] MEDS: ibuprofen tablet 400 MG TABLET PO SCH ×2 (08:54→16:06)
[2021-11-24] MEDS: buPROPion SR 150mg tablet PO SCH (08:54)
[2021-11-24] MEDS: loratadine 10mg tablet PO SCH (08:54)
[2021-11-24] MEDS: sertraline 50mg tablet PO SCH (08:55)
[2021-11-24 10:00] VITALS: BP 103/38
--- NOTE | 2021-11-24 10:01 | NUR ---
PAGER ID: [phone] MESSAGE: [phone], [place] patients blood pressure is 103/38 with a map of 60. Getting iv fluids at 125mls/hr, would you like a bolus? juany [id number]
--- NOTE | 2021-11-24 12:20 | NUR ---
PAGER ID: [phone] MESSAGE: [phone] [place] patients blood sugar is 244 so she meets out protocol but she is refusing insulin? can we restart her oral medications? on metformin and pioglitazone. thanks juany [phone]
--- NOTE | 2021-11-24 16:55 | NUR ---
Patient blood sugar at 1755 was 199, refusing insulin at this time stated "I never took insulin before and dont want to start now." RN attempted to page , awaiting for response regarding blood sugar and insulin.
--- NOTE | 2021-11-24 18:18 | NUR ---
Reported off to oncoming nurse Mary ARVIZU.
[2021-11-24 19:16] VITALS: BP 117/58
[2021-11-24] MEDS: insulin glargine (Lantus) pen - multi-dose SQ SCH (21:00)
[2021-11-24] MEDS: HYDROmorphone 1 mg/ml syringe IV PRN (21:35)
[2021-11-24] MEDS: amitriptyline 50mg tablet PO SCH (21:35)
[2021-11-24] MEDS: sennosides 8.6mg tablet PO SCH (23:05)
[2021-11-24] MEDS: enoxaparin 40mg/0.4ml syringe SQ SCH (23:11)
[2021-11-25] MEDS: ibuprofen tablet 400 MG TABLET PO SCH ×3 (00:13→15:34)
[2021-11-25] MEDS: potassium cl 20mEq in 1/2 NS 1,000 ML IV SCH ×2 (02:32→11:07)
--- NOTE | 2021-11-25 06:22 | NUR ---
Problems reprioritized. Patient report given, questions answered & plan of care reviewed with Dayanna ARVIZU. Addendum: 11/25/21 at 0622 by Mary Velásquez RN Amended: Links added.
[2021-11-25 06:32] LABS: BASOPHILS % (AUTO) 0.3 % (0-1); EOSINOPHILS # (AUTO) 0.4 X10'3 (0-0.9); EOSINOPHILS % (AUTO) 5.4 % (0-6); HEMATOCRIT 25.3 % (35.0-45.0); HEMOGLOBIN 8.2 g/dl (12.0-16.0); LYMPHOCYTES # (AUTO) 1.2 X10'3 (1.1-4.8); LYMPHOCYTES % (AUTO) 14.3 % (21-51); MEAN CORPUSCULAR HEMOGLOBIN 28.1 PG (27.0-31.0); MEAN CORPUSCULAR HGB CONC 32.3 g/dL (33.0-36.5); MEAN PLATELET VOLUME 9.2 FL (7.4-10.4); MONOCYTES # (AUTO) 0.7 X10'3 (0-0.9); MONOCYTES % (AUTO) 8.2 % (2-12); NEUTROPHILS # (AUTO) 5.9 X10'3 (1.8-7.7); NEUTROPHILS % (AUTO) 71.8 % (42-75); PLATELET COUNT 217 X10'3 (140-440); RED BLOOD COUNT 2.91 X10'6 (4.20-5.60); RED CELL DISTRIBUTION WIDTH 17.7 % (11.5-14.5); WHITE BLOOD COUNT 8.3 X10'3 (4.5-11.0)
[2021-11-25] MEDS: normal saline 1000ml 1,000 ML IV SCH ×2 (06:55→16:55)
--- NOTE | 2021-11-25 06:56 | NUR ---
Patient in room ORTHO 4014. I have received report from chloe ARVIZU and had the opportunity to ask questions and assume patient care.
[2021-11-25 07:00] VITALS: BP 114/58
[2021-11-25] MEDS: HYDROmorphone 1 mg/ml syringe IV PRN ×3 (07:30→20:06)
[2021-11-25] MEDS: sertraline 50mg tablet PO SCH (07:38)
[2021-11-25] MEDS: loratadine 10mg tablet PO SCH (07:38)
[2021-11-25] MEDS: docusate sod 100mg capsule PO SCH ×2 (07:38→20:06)
[2021-11-25] MEDS: atorvastatin 20mg tablet PO SCH (07:38)
[2021-11-25] MEDS: aspirin 81mg, enteric-coated 1 TAB TABLET.DR PO SCH (07:40)
[2021-11-25] MEDS: lisinopril 20mg tablet PO SCH (07:40)
[2021-11-25] MEDS: buPROPion SR 150mg tablet PO SCH (07:41)
[2021-11-25] MEDS: allopurinol 100mg tablet PO SCH (07:41)
[2021-11-25] MEDS: K and/or MAG REPLACEMENT MC SCH ×2 (08:00→20:00)
[2021-11-25] MEDS: HYDROcodone/acetaminophen 10/325mg tab PO PRN ×2 (09:17→21:56)
[2021-11-25 14:00] VITALS: BP 107/53
--- NOTE | 2021-11-25 17:00 | NUR ---
patient very painful medicated as per Emar with moderate result. switched to percocet for pain with dilaudid for breakthrough . up with PT see note . All cares given. Report given to Mary ARVIZU
[2021-11-25] MEDS: oxyCODONE/APAP 10/325mg tablet PO PRN (17:34)
[2021-11-25] MEDS: enoxaparin 40mg/0.4ml syringe SQ SCH (20:07)
[2021-11-25] MEDS: insulin glargine (Lantus) pen - multi-dose SQ SCH (21:00)
[2021-11-25] MEDS: sennosides 8.6mg tablet PO SCH (21:56)
[2021-11-25] MEDS: amitriptyline 50mg tablet PO SCH (21:57)
[2021-11-26] MEDS: ibuprofen tablet 400 MG TABLET PO SCH ×3 (00:05→16:05)
[2021-11-26] MEDS: normal saline 1000ml 1,000 ML IV SCH ×2 (02:55→14:00)
--- NOTE | 2021-11-26 06:13 | NUR ---
Problems reprioritized. Patient report given, questions answered & plan of care reviewed with Sandra RAVIZU. Addendum: 11/26/21 at 0613 by Mary Velásquez RN Amended: Links added.
--- NOTE | 2021-11-26 06:37 | NUR ---
Received report from NOLBERTO Hernandez.
[2021-11-26 06:52] VITALS: BP 118/58
[2021-11-26 07:27] LABS: ALANINE AMINOTRANSFERASE 12 U/L (12-78); ALBUMIN 2.3 G/DL (3.4-5.0); ALBUMIN/GLOBULIN RATIO 0.7 (1.1-1.5); ALKALINE PHOSPHATASE 79 IU/L (46-116); ANION GAP 6 (8-16); ASPARTATE AMINO TRANSFERASE 11 U/L (10-37); BILIRUBIN,TOTAL 0.2 MG/DL (0.1-1.0); BLOOD UREA NITROGEN 20 MG/DL (7-18); BUN/CREATININE RATIO 22.2 (6.6-38.0); CALCIUM 8.1 MG/DL (8.5-10.1); CHLORIDE 107 MMOL/L (99-107); GLUCOSE 118 MG/DL (70-104); POTASSIUM 4.3 MMOL/L (3.5-5.1); SODIUM 140 MMOL/L (135-145); TOTAL CARBON DIOXIDE 26.8 MMOL/L (24-32); TOTAL PROTEIN 5.6 G/DL (6.4-8.2); eGFR 63 ML/MIN
[2021-11-26 07:28] LABS: BASOPHILS % (AUTO) 0.6 % (0-1); EOSINOPHILS # (AUTO) 0.7 X10'3 (0-0.9); EOSINOPHILS % (AUTO) 8.6 % (0-6); HEMATOCRIT 25.3 % (35.0-45.0); LYMPHOCYTES # (AUTO) 1.4 X10'3 (1.1-4.8); LYMPHOCYTES % (AUTO) 18.3 % (21-51); MEAN CORPUSCULAR HEMOGLOBIN 27.4 PG (27.0-31.0); MEAN CORPUSCULAR HGB CONC 31.4 g/dL (33.0-36.5); MEAN CORPUSCULAR VOLUME 87.3 FL (78-98); MEAN PLATELET VOLUME 9.8 FL (7.4-10.4); MONOCYTES # (AUTO) 0.8 X10'3 (0-0.9); MONOCYTES % (AUTO) 9.9 % (2-12); NEUTROPHILS # (AUTO) 4.9 X10'3 (1.8-7.7); NEUTROPHILS % (AUTO) 62.6 % (42-75); PLATELET COUNT 245 X10'3 (140-440); RED CELL DISTRIBUTION WIDTH 17.8 % (11.5-14.5); WHITE BLOOD COUNT 7.8 X10'3 (4.5-11.0)
[2021-11-26] MEDS: buPROPion SR 150mg tablet PO SCH (07:39)
[2021-11-26] MEDS: aspirin 81mg, enteric-coated 1 TAB TABLET.DR PO SCH (07:40)
[2021-11-26] MEDS: allopurinol 100mg tablet PO SCH (07:40)
[2021-11-26] MEDS: atorvastatin 20mg tablet PO SCH (07:40)
[2021-11-26] MEDS: sertraline 50mg tablet PO SCH (07:40)
[2021-11-26] MEDS: loratadine 10mg tablet PO SCH (07:40)
[2021-11-26] MEDS: docusate sod 100mg capsule PO SCH ×2 (07:40→19:47)
[2021-11-26] MEDS: lisinopril 20mg tablet PO SCH (07:46)
[2021-11-26] MEDS: HYDROcodone/acetaminophen 10/325mg tab PO PRN ×3 (07:48→19:46)
[2021-11-26] MEDS: K and/or MAG REPLACEMENT MC SCH ×2 (08:00→20:00)
--- NOTE | 2021-11-26 09:53 | NUR ---
Spoke to sister on the phone about why patient can not come home as sister and patient are not clear why she needs to go to rehab. Explained to sister patient is requiring a lot of assistance with PT and needing 2 person moderate assist to transfer. Sister stated that if patient can get to a bedside commode with help then she can take her home and help her and her can build a ramp for the wheelchair if needed.
--- NOTE | 2021-11-26 13:37 | NUR ---
PAGER ID: [phone] MESSAGE: [phone], [place] patient has fluid orders normal saline at 100, she is having good output and drinking lots of water. do you still want iv fluids? juany [phone]
[2021-11-26 18:00] VITALS: BP 87/60
--- NOTE | 2021-11-26 18:41 | NUR ---
Patient report was given to NOLBERTO Casey
[2021-11-26 19:00] VITALS: BP 87/60
[2021-11-26] MEDS: enoxaparin 40mg/0.4ml syringe SQ SCH (19:47)
[2021-11-26] MEDS: sennosides 8.6mg tablet PO SCH (20:54)
[2021-11-26] MEDS: amitriptyline 50mg tablet PO SCH (20:55)
[2021-11-26] MEDS: insulin glargine (Lantus) pen - multi-dose SQ SCH (21:00)
[2021-11-26 22:00] VITALS: BP 146/53
[2021-11-27] MEDS: ibuprofen tablet 400 MG TABLET PO SCH ×2 (00:12→07:15)
[2021-11-27 06:18] LABS: ALANINE AMINOTRANSFERASE 14 U/L (12-78); ALBUMIN 2.3 G/DL (3.4-5.0); ALBUMIN/GLOBULIN RATIO 0.7 (1.1-1.5); ALKALINE PHOSPHATASE 85 IU/L (46-116); ANION GAP 5 (8-16); ASPARTATE AMINO TRANSFERASE 9 U/L (10-37); BILIRUBIN,TOTAL 0.2 MG/DL (0.1-1.0); BLOOD UREA NITROGEN 18 MG/DL (7-18); BUN/CREATININE RATIO 20.5 (6.6-38.0); CALCIUM 8.5 MG/DL (8.5-10.1); CHLORIDE 108 MMOL/L (99-107); CREATININE 0.88 MG/DL (0.40-0.90); GLUCOSE 113 MG/DL (70-104); POTASSIUM 4.5 MMOL/L (3.5-5.1); SODIUM 140 MMOL/L (135-145); TOTAL CARBON DIOXIDE 27.2 MMOL/L (24-32); TOTAL PROTEIN 5.8 G/DL (6.4-8.2); eGFR 64 ML/MIN
--- NOTE | 2021-11-27 06:25 | NUR ---
Problems reprioritized. Patient report given, questions answered & plan of care reviewed with JESUS. Addendum: 11/27/21 at 0625 by Addy Gu RN Amended: Links added.
--- NOTE | 2021-11-27 06:33 | NUR ---
Received patient report from Jacinto ARVIZU.
[2021-11-27 06:50] LABS: BASOPHILS % (AUTO) 0.5 % (0-1); EOSINOPHILS # (AUTO) 0.6 X10'3 (0-0.9); EOSINOPHILS % (AUTO) 8.8 % (0-6); HEMOGLOBIN 8.5 g/dl (12.0-16.0); LYMPHOCYTES # (AUTO) 1.3 X10'3 (1.1-4.8); LYMPHOCYTES % (AUTO) 18.2 % (21-51); MEAN CORPUSCULAR HEMOGLOBIN 27.3 PG (27.0-31.0); MEAN CORPUSCULAR HGB CONC 30.3 g/dL (33.0-36.5); MEAN CORPUSCULAR VOLUME 89.8 FL (78-98); MEAN PLATELET VOLUME 9.7 FL (7.4-10.4); MONOCYTES # (AUTO) 0.6 X10'3 (0-0.9); MONOCYTES % (AUTO) 8.9 % (2-12); NEUTROPHILS # (AUTO) 4.5 X10'3 (1.8-7.7); NEUTROPHILS % (AUTO) 63.6 % (42-75); PLATELET COUNT 264 X10'3 (140-440); RED BLOOD COUNT 3.12 X10'6 (4.20-5.60); RED CELL DISTRIBUTION WIDTH 18.7 % (11.5-14.5); WHITE BLOOD COUNT 7.1 X10'3 (4.5-11.0)
[2021-11-27] MEDS: buPROPion SR 150mg tablet PO SCH (07:15)
[2021-11-27] MEDS: docusate sod 100mg capsule PO SCH (07:16)
[2021-11-27] MEDS: sertraline 50mg tablet PO SCH (07:16)
[2021-11-27] MEDS: allopurinol 100mg tablet PO SCH (07:16)
[2021-11-27] MEDS: aspirin 81mg, enteric-coated 1 TAB TABLET.DR PO SCH (07:16)
[2021-11-27] MEDS: oxyCODONE/APAP 10/325mg tablet PO PRN ×2 (07:17→13:53)
[2021-11-27] MEDS: atorvastatin 20mg tablet PO SCH (07:17)
[2021-11-27] MEDS: loratadine 10mg tablet PO SCH (07:17)
[2021-11-27] MEDS: lisinopril 20mg tablet PO SCH (07:18)
--- NOTE | 2021-11-27 07:58 | NUR ---
Reassessment: Pt currently on Carb control diet w/ mostly 100% intake of meals meeting est nutrient needs at this time. LB 11/24 receiving routine bowel care. No nutrition intervention implemented at this time. Will continue to monitor. Recs: 1. Continue Carb control diet 2. Double protein WB for satiety 3. Routine bowel care 4. Scaled wts Addendum: 11/27/21 at [address] Amended: Links added.
[2021-11-27] MEDS: K and/or MAG REPLACEMENT MC SCH (08:00)
[2021-11-27] MEDS: HYDROmorphone inj. 0.5 MG/0.5 ML DISP.SYRIN IV PRN (10:16)
[2021-11-27 10:29] VITALS: BP 152/71
--- NOTE | 2021-11-27 12:44 | NUR ---
Report was given to NOLBERTO Delacruz at [facility].
--- NOTE | 2021-11-27 13:16 | NUR ---
PRESSURE ULCER EDUCATION: DEFINITION: A pressure ulcer is an area of skin that breaks down when you stay in one position too long. The constant pressure against the skin reduces the blood flow to that area and the affected tissue dies. CAUSES: "Being bedridden or in a wheelchair "Fragile skin "Having a chronic condition, such as diabetes or vascular disease "Inability to move certain parts of your body without assistance "Older age "Incontinence of urine or stool SYMPTOMS: "A reddened area that DOES NOT turn white when pressed on - this can be the beginning of a pressure ulcer "A blister, deep sore or a crater - these can be advanced pressure ulcers FIRST AID: "Relieve the pressure on this area "Keep the area clean and dry "Call your primary doctor if you see any of the above symptoms "DO NOT massage the area "DO NOT use a donut shaped or ring shaped pillow- these actually interfere with the blood flow and cause complications PREVENTION: "Check for pressure ulcers everyday "Change position at least every two hours to relieve pressure "Use items that help relieve pressure- pillows, sheepskin, foam padding, and powders. "Keep skin clean and dry "Eat healthy well balanced meals "Exercise daily IF YOU SEE ANY OF THESE SYMPTOMS WHILE IN THE HOSPITAL - TELL YOUR NURSE IMMEDIATELY. IF YOU SEE ANY OF THESE SYMPTOMS WHILE AT HOME OR HAVE ANY QUESTIONS OR CONCERNS ABOUT PRESSURE ULCERS - CALL YOUR PRIMARY DOCTOR IMMEDIATELY. Addendum: 11/27/21 at 1316 by Jesika Pal LVN Amended: Links added.
--- NOTE | 2021-11-27 13:59 | NUR ---
Patient was discharged to [facility] transported by A. Report was given. Patient left in stable condition with no complication.
== END 2021-11-27 13:55 | DRG 493 ==
LOC: ER 11:10 → ED HOLD 17:00 → ORTHO 4S 11-16 16:50
PROVIDERS: ADMIT Family Medicine; ATTEND Family Medicine
PROC: 0SSGXZZ Reposition Left Ankle Joint, External Approach (ICD-10-PCS; 2021-11-15)
PROC: 0SG Lower Joints, Fusion (ICD-10-PCS; principal; 2021-11-22)
PROC: 0SG Lower Joints, Fusion (ICD-10-PCS; 2021-11-22)
PROC: 0SG Lower Joints, Fusion (ICD-10-PCS; 2021-11-22)
PROC: 0SG Lower Joints, Fusion (ICD-10-PCS; 2021-11-22)
PROC: 3E0T3BZ Introduction of Anesthetic Agent into Peripheral Nerves and Plexi, Percutaneous Approach (ICD-10-PCS; 2021-11-23)
PROC: 3E0T33Z Introduction of Anti-inflammatory into Peripheral Nerves and Plexi, Percutaneous Approach (ICD-10-PCS; 2021-11-23)
DX: S82.852A Displaced trimalleolar fracture of left lower leg, initial encounter for closed fracture (principal); Z68.43 Body mass index [BMI] 50.0-59.9, adult; D62 Acute posthemorrhagic anemia; E78.5 Hyperlipidemia, unspecified; Z20.822 Contact with and (suspected) exposure to COVID-19; E66.01 Morbid (severe) obesity due to excess calories; W01.0XXA Fall on same level from slipping, tripping and stumbling without subsequent striking against object, initial encounter; E11.9 Type 2 diabetes mellitus without complications; Z96.652 Presence of left artificial knee joint; D63.8 Anemia in other chronic diseases classified elsewhere; M10.9 Gout, unspecified; F32.A Depression, unspecified; D50.9 Iron deficiency anemia, unspecified; G25.81 Restless legs syndrome; I10 Essential (primary) hypertension; Z79.84 Long term (current) use of oral hypoglycemic drugs; Z82.49 Family history of ischemic heart disease and other diseases of the circulatory system; Z87.891 Personal history of nicotine dependence; Y93.89 Activity, other specified; Y92.098 Other place in other non-institutional residence as the place of occurrence of the external cause; Y99.8 Other external cause status; Z79.899 Other long term (current) drug therapy; Z79.82 Long term (current) use of aspirin
CPT/HCPCS: 27818; 36415; 71045; 73600; 73610; 73700; 76000; 80051; 80053; 81001; 82607; 82948; 83036; 83540; 83550; 85025; 85610; 86885; 86900; 86901; 87081; 87088; 93005; 94760; 94799; 96361; 96365; 96375; 97110; 97161; 97530; 97542; 99291; A4618; A6223; A6253; A6449; A7000; C1713; G0378; J0690; J1100; J1170; J1650; J1815; J1885; J2250; J2270; J2405; J2704; J3010; J3370; J3480; J3490; J7030; J7040; J7120

== ENCOUNTER 2022-03-08 06:36 | Emergency (ER) | payer MEDICARE, MEDICAID ==
[~2022-03-08] VITALS: Ht 165.1 cm; Wt 136.4 kg
[~2022-03-08 06:36] MED LIST changes: -AMIT-189 PO; +AMIT100T61 PO; +ASPI-1397 PO; -ASPI-611 PO; +ATOR40TA72 PO; +BENA40TA46 PO; -BENA40TA90 PO; +BUPR-72 PO; +BUPR150T8 PO; -GABA-532 PO; +IBUP-1984 PO; -IBUP-1986 PO; +LORA10TA7 PO; -MONT-40 PO; -PRAM0.5T3 PO; +PRAM1TAB6 PO; -SERT-153 PO; +SERT-433 PO; -[UNRECOGNIZED DRUG - CODE] PO
[2022-03-08] MEDS ORDERED: acetaminophen 325mg tablet PO ONE (09:20)
[2022-03-08 11:48] VITALS: BP 165/51
== END 2022-03-08 11:50 | disposition home or self-care (01) ==
LOC: ER 06:37
DX: S82.292G Other fracture of shaft of left tibia, subsequent encounter for closed fracture with delayed healing (principal); I10 Essential (primary) hypertension; E11.9 Type 2 diabetes mellitus without complications; Z79.899 Other long term (current) drug therapy; Z79.1 Long term (current) use of non-steroidal anti-inflammatories (NSAID); Z79.84 Long term (current) use of oral hypoglycemic drugs; X58.XXXD Exposure to other specified factors, subsequent encounter
CPT/HCPCS: 73610; 73700; 99285

== ENCOUNTER 2023-11-06 12:08 | Day surgery (SDC) | payer MEDICARE, MEDICAID ==
[~2023-11-06] VITALS: Ht 165.1 cm; Wt 136.1 kg
[2023-11-06] VITALS (12 sets, daily range): BP systolic 99–146; BP diastolic 51–89; PULSE 76–120; RESP 15–36; TEMP 97.7; O2SAT 90–99
[2023-11-06] MEDS: ceFAZolin inj. 3,000 MG in normal saline 100ml IV soln 100 ML IV ONE (05:30)
[~2023-11-06 12:08] MED LIST changes: -ASPI-1397 PO; +ASPI-1468 PO; -ATOR40TA72 PO; -BUPR-72 PO; +DOCU-148 PO; +HYDR-3973 PO; -IBUP-1984 PO; +INSU100V11 SQ; +LACT1TAB21 PO; -LORA10TA7 PO; +MULT-1085 PO; +NITR0.4T51 SL; +OMEP40CA21 PO; -PIOG30TA71 PO; +VANC1VIA38 IV; +cefazolin 2gm/D5W 100mL 100 ML IV ONE
[2023-11-06] MEDS: ringers solution, lacted 1,000 ML IV SCH ×2 (13:48→19:55)
[2023-11-06] MEDS: famotidine 20mg tablet PO ONE (13:48)
[2023-11-06 14:06] LABS: BASOPHILS % (AUTO) 0.5 % (0-1); EOSINOPHILS # (AUTO) 0.6 X10'3 (0-0.9); LYMPHOCYTES % (AUTO) 10.5 % (21-51); MEAN CORPUSCULAR HEMOGLOBIN 29.3 PG (27.0-31.0); MEAN CORPUSCULAR HGB CONC 31.6 g/dL (33.0-36.5); MEAN CORPUSCULAR VOLUME 92.7 FL (78-98); MEAN PLATELET VOLUME 8.7 FL (7.4-10.4); MONOCYTES # (AUTO) 0.6 X10'3 (0-0.9); MONOCYTES % (AUTO) 6.9 % (2-12); NEUTROPHILS # (AUTO) 6.9 X10'3 (1.8-7.7); NEUTROPHILS % (AUTO) 75.1 % (42-75); PRE OP HEMATOCRIT 37.1 % (35.0-45.0); PRE OP HEMOGLOBIN 11.7 g/dL (12.0-16.0); PRE OP PLATELET COUNT 241 X10'3 (140-440); PRE OP WHITE BLOOD COUNT 9.2 10'3 (4.8-10.8); RED CELL DISTRIBUTION WIDTH 15.9 % (11.5-14.5)
[2023-11-06 14:18] LABS: ALBUMIN/GLOBULIN RATIO 0.8 (1.1-1.5); ALKALINE PHOSPHATASE 90 IU/L (46-116); BLOOD UREA NITROGEN 26 MG/DL (7-18); BUN/CREATININE RATIO 30.6 (10.0-20.0); CALCIUM 8.6 MG/DL (8.5-10.1); CHLORIDE 105 MMOL/L (99-107); CREATININE 0.85 MG/DL (0.40-0.90); PRE OP ALT 14 U/L (30-65); PRE OP ANION GAP 4 (8-16); PRE OP AST 14 U/L (10-37); PRE OP BILIRUB, TOTAL 0.2 MG/DL (0.0-1.0); PRE OP GLUCOSE 134 MG/DL (70-104); PRE OP POTASSIUM 4.4 MMOL/L (3.4-5.1); PRE OP SODIUM 137 MMOL/L (135-145); TOTAL CARBON DIOXIDE 28.3 MMOL/L (24-32); TOTAL PROTEIN 6.6 G/DL (6.4-8.2); eCRCL 57 ML/MIN; eGFR 67 ML/MIN
[2023-11-06] MEDS ORDERED: LIDOcaine 1% 30ml preserv. free vial ONE (15:56)
[2023-11-06] MEDS ORDERED: BUPIVAcaine 2.5mg/ml inj 50ml vial (contains preservative) ONE (15:57)
[2023-11-06] MEDS ORDERED: midazolam 1 mg/ML 2ml injection ONE (16:14)
[2023-11-06] MEDS ORDERED: fentaNYL /PF 50mcg/ml 5ml ampule ONE (16:15)
[2023-11-06] MEDS ORDERED: propofol inj 20 ML IV ONE (16:25)
[2023-11-06] MEDS ORDERED: ROPIVAcaine 0.5% (5mg/ml) 30ml vial ONE (16:25)
[2023-11-06] MEDS ORDERED: rocuronium 10mg/ml inj IV ONE (16:25)
[2023-11-06] MEDS ORDERED: sevoflurane 250ml liquid IH ONE (16:25)
[2023-11-06] MEDS ORDERED: morphine 4 MG/ML inj SYRINge IV PRN (18:50)
[2023-11-06] MEDS ORDERED: morphine 2 MG/ML inj. syringe IV PRN (18:50)
[2023-11-06] MEDS ORDERED: meperidine/PF 25mg/ml syringe IV PRN ×2 (18:50)
[2023-11-06] MEDS ORDERED: proCHLORperazine 10 MG/2 ml inj IV PRN (18:50)
[2023-11-06] MEDS ORDERED: ondansetron/PF 4mg/2ml inj IV PRN (18:50)
[2023-11-06] MEDS ORDERED: bacitracin 15gm ointment TP ONE (19:02)
[2023-11-06] MEDS ORDERED: vancomycin 1,000mg inj ONE (19:02)
[2023-11-06] MEDS ORDERED: glycopyrrolate 0.2mg/ml inj ONE (19:17)
[2023-11-06] MEDS ORDERED: neostigmine methylsulfate 1 MG/ML 10ml vial ONE (19:17)
[2023-11-06] MEDS ORDERED: ondansetron/PF 4mg/2ml inj ONE (19:18)
[2023-11-06] MEDS: bacitracin 15gm ointment TP ONE (19:23)
[2023-11-06] MEDS: meperidine/PF 25mg/ml syringe IV PRN (20:00)
[2023-11-06] MEDS: acetaminophen 1,000mg/100ml IV 100 ML IV ONE (20:04)
[2023-11-06] MEDS: HYDROcodone/acetaminophen 10/325mg tab PO PRN (20:23)
== END 2023-11-06 21:18 ==
LOC: PAS 12:08
PROVIDERS: ATTEND Podiatrist Foot & Ankle Surgery
DX: T84.84XA Pain due to internal orthopedic prosthetic devices, implants and grafts, initial encounter (principal); G89.18 Other acute postprocedural pain; M25.375 Other instability, left foot; I10 Essential (primary) hypertension; E11.9 Type 2 diabetes mellitus without complications; E66.01 Morbid (severe) obesity due to excess calories; I20.9 Angina pectoris, unspecified; J44.9 Chronic obstructive pulmonary disease, unspecified; I42.9 Cardiomyopathy, unspecified; F41.9 Anxiety disorder, unspecified; F32.A Depression, unspecified; G47.30 Sleep apnea, unspecified; M10.9 Gout, unspecified; Z85.41 Personal history of malignant neoplasm of cervix uteri; Z79.1 Long term (current) use of non-steroidal anti-inflammatories (NSAID); Z79.82 Long term (current) use of aspirin; Z79.899 Other long term (current) drug therapy; Z90.710 Acquired absence of both cervix and uterus; Z96.652 Presence of left artificial knee joint; Z98.890 Other specified postprocedural states; Z68.42 Body mass index [BMI] 45.0-49.9, adult; Y79.2 Prosthetic and other implants, materials and accessory orthopedic devices associated with adverse incidents; Y92.89 Other specified places as the place of occurrence of the external cause
CPT/HCPCS: 20694; 28725; 36415; 64445; 71045; 73600; 80053; 85025; A6223; C1713; J0131; J0690; J1100; J2175; J2250; J2405; J2704; J2710; J2795; J3010; J3370; J3490; J7030; J7120; Z7506; Z7508; Z7512; 76000; A4615; A4618; A6253; A6449; A7000; C1769

== ENCOUNTER 2023-11-06 22:40 | Emergency (ER) | payer MEDICARE, MEDICAID ==
[~2023-11-06] VITALS: Ht 165.1 cm; Wt 136.0 kg
[~2023-11-06 22:40] MED LIST changes: -cefazolin 2gm/D5W 100mL 100 ML IV ONE
[2023-11-06 22:46] VITALS: TEMP 98.4
[2023-11-07] MEDS: ondansetron/PF 4mg/2ml inj IV ONE (00:25)
[2023-11-07] MEDS: morphine 4 MG/ML inj SYRINge IV ONE ×2 (00:26→03:06)
[2023-11-07 03:36] VITALS: BP 119/51; PULSE 78; RESP 13; O2SAT 95
== END 2023-11-07 03:39 | disposition home or self-care (01) ==
LOC: ER 22:40
DX: M96.830 Postprocedural hemorrhage of a musculoskeletal structure following a musculoskeletal system procedure (principal); I10 Essential (primary) hypertension; E11.9 Type 2 diabetes mellitus without complications
CPT/HCPCS: 29515; 96374; 96375; 96376; 99285; J2270; J2405; 29125; A6402

== ENCOUNTER 2023-11-22 14:44 | Inpatient (IN) | payer MEDICARE, MEDICAID ==
[~2023-11-22] VITALS: Ht 165.1 cm; Wt 100.8 kg
[2023-11-22] MEDS ORDERED: iohexol 350MG/ML 100ml bottle IV ONE (15:42)
[2023-11-22] MEDS: morphine 2 MG/ML inj. syringe IV PRN (15:51)
[2023-11-22] MEDS: nitroGLYCERIN 1gm ointment UD TP ONE (15:51)
[2023-11-22] MEDS: ondansetron/PF 4mg/2ml inj IV ONE (15:51)
[2023-11-22 15:52] LABS: BASOPHILS # (AUTO) 0.1 X10'3 (0-0.2); BASOPHILS % (AUTO) 0.5 % (0-1); EOSINOPHILS # (AUTO) 0.1 X10'3 (0-0.9); EOSINOPHILS % (AUTO) 0.6 % (0-6); HEMATOCRIT 32.1 % (35.0-45.0); HEMOGLOBIN 10.2 g/dl (12.0-16.0); LYMPHOCYTES # (AUTO) 0.9 X10'3 (1.1-4.8); LYMPHOCYTES % (AUTO) 7.1 % (21-51); MEAN CORPUSCULAR HEMOGLOBIN 28.8 PG (27.0-31.0); MEAN CORPUSCULAR HGB CONC 31.8 g/dL (33.0-36.5); MEAN CORPUSCULAR VOLUME 90.4 FL (78-98); MEAN PLATELET VOLUME 9.2 FL (7.4-10.4); MONOCYTES # (AUTO) 0.6 X10'3 (0-0.9); MONOCYTES % (AUTO) 5.1 % (2-12); NEUTROPHILS # (AUTO) 10.5 X10'3 (1.8-7.7); NEUTROPHILS % (AUTO) 86.7 % (42-75); PLATELET COUNT 320 X10'3 (140-440); RED BLOOD COUNT 3.55 X10'6 (4.20-5.60); RED CELL DISTRIBUTION WIDTH 15.5 % (11.5-14.5); WHITE BLOOD COUNT 12.2 X10'3 (4.5-11.0)
[2023-11-22] MEDS: aspirin 325mg tablet PO ONE (15:52)
[2023-11-22 16:13] LABS: ALANINE AMINOTRANSFERASE 17 U/L (12-78); ALBUMIN/GLOBULIN RATIO 0.8 (1.1-1.5); ALKALINE PHOSPHATASE 116 IU/L (46-116); ANION GAP 5 (8-16); ASPARTATE AMINO TRANSFERASE 17 U/L (10-37); BILIRUBIN,TOTAL 0.3 MG/DL (0.1-1.0); BLOOD UREA NITROGEN 21 MG/DL (7-18); BUN/CREATININE RATIO 23.1 (10.0-20.0); CHLORIDE 104 MMOL/L (99-107); CREATININE 0.91 MG/DL (0.40-0.90); GLUCOSE 167 MG/DL (70-104); POTASSIUM 4.2 MMOL/L (3.5-5.1); SODIUM 140 MMOL/L (135-145); TOTAL PROTEIN 6.9 G/DL (6.4-8.2); eCRCL 53 ML/MIN; eGFR 61 ML/MIN
[2023-11-22 16:22] LABS: MAGNESIUM 1.4 MG/DL (1.5-2.4)
[2023-11-22] MEDS: labetalol 20mg/4ml (5mg/ml) syringe IV ONE (16:23)
[2023-11-22 16:24] LABS: BILIRUBIN,DIRECT 0.1 MG/DL (0-0.3)
[2023-11-22 16:50] LABS: PRO BRAIN NATRIURETIC PEPTIDE > 30000 PG/ML (0-125)
[2023-11-22] MEDS: magnesium 2GM in 50ml NS 50 ML IV ONE (17:01)
[2023-11-22] MEDS: furosemide 10 MG/1 ML 10ml inj IV ONE (19:31)
[2023-11-22] MEDS ORDERED: ondansetron/PF 4mg/2ml inj IV PRN (21:10)
[2023-11-22] MEDS ORDERED: furosemide 40mg/4ml inj IV SCH (21:10)
[2023-11-22] MEDS ORDERED: mag hydrox/Alum hydrox/simeth 30ml oral suspension PO PRN (21:10)
[2023-11-22] MEDS ORDERED: acetaminophen 325mg tablet PO PRN (21:10)
[2023-11-22] MEDS ORDERED: potassium Cl 40MEQ/1/2NS 520ml 520 ML IV PRN (21:10)
[2023-11-22] MEDS ORDERED: magnesium 2GM in 50ml NS 50 ML IV PRN (21:10)
[2023-11-22] MEDS ORDERED: magnesium 4gm in 100ml NS 100 ML IV PRN (21:10)
[2023-11-22] MEDS ORDERED: morphine 2 MG/ML inj. syringe IV PRN ×2 (21:10)
[2023-11-22] MEDS ORDERED: magnesium Cl slow-release 64mg tablet PO PRN (21:10)
[2023-11-22] MEDS ORDERED: potassium Cl 20 mEq SR tablet PO PRN (21:10)
[2023-11-22] MEDS ORDERED: normal saline 1000ml 1,000 ML IV SCH (21:10)
[2023-11-22] MEDS ORDERED: DEXTROSE 15 GM of carb/4 tabs (each vial/BOTTLE has 4 tablets) PO PRN ×2 (21:25)
[2023-11-22] MEDS ORDERED: dextrose 50%-water 50ml dispensing syringe IV PRN ×2 (21:25)
[2023-11-22] MEDS ORDERED: glucagon, human recombinant 1mg kit SUBCUT PRN (21:25)
[2023-11-22 22:46] LABS: MAGNESIUM 1.9 MG/DL (1.5-2.4); POTASSIUM 4.1 MMOL/L (3.5-5.1)
[2023-11-22] MEDS ORDERED: heparin 10,000 units/1 ML INJ IV ONE (23:20)
[2023-11-22] MEDS ORDERED: heparin 10,000 units/1 ML INJ IV SCH (23:20)
[2023-11-22] MEDS: magnesium 4gm in 100ml NS 100 ML IV ONE (23:40)
[2023-11-22] MEDS: MESSAGE TO NURSING IV ONE (23:55)
[2023-11-23] VITALS (12 sets, daily range): BP systolic 98–160; BP diastolic 77–89; PULSE 96–123; RESP 18–29; TEMP 97.7–98.6; O2SAT 94–96
[2023-11-23 00:34] LABS: BASOPHILS # (AUTO) 0.1 X10'3 (0-0.2); BASOPHILS % (AUTO) 0.6 % (0-1); EOSINOPHILS # (AUTO) 0.3 X10'3 (0-0.9); EOSINOPHILS % (AUTO) 2.7 % (0-6); HEMATOCRIT 30.2 % (35.0-45.0); HEMOGLOBIN 9.5 g/dl (12.0-16.0); LYMPHOCYTES # (AUTO) 1.5 X10'3 (1.1-4.8); MEAN CORPUSCULAR HEMOGLOBIN 28.4 PG (27.0-31.0); MEAN CORPUSCULAR HGB CONC 31.5 g/dL (33.0-36.5); MEAN CORPUSCULAR VOLUME 90.2 FL (78-98); MEAN PLATELET VOLUME 9.5 FL (7.4-10.4); MONOCYTES # (AUTO) 1.1 X10'3 (0-0.9); MONOCYTES % (AUTO) 9.4 % (2-12); NEUTROPHILS # (AUTO) 9.2 X10'3 (1.8-7.7); NEUTROPHILS % (AUTO) 75.3 % (42-75); PLATELET COUNT 326 X10'3 (140-440); RED BLOOD COUNT 3.34 X10'6 (4.20-5.60); RED CELL DISTRIBUTION WIDTH 15.8 % (11.5-14.5); WHITE BLOOD COUNT 12.2 X10'3 (4.5-11.0)
[2023-11-23] MEDS: furosemide 40mg/4ml inj IV SCH (01:33)
[2023-11-23] MEDS: heparin 10,000 units/1 ML INJ IV ONE (01:37)
[2023-11-23 04:15] LABS: HEMOGLOBIN A1C 7.5 % (4.5-6.2)
[2023-11-23 05:12] LABS: BILIRUBIN,URINE NEGATIVE (Neg); CLARITY,URINE CLEAR (Clear); COLOR,URINE STRAW (Yellow); GLUCOSE, URINE NEGATIVE (Neg); KETONES,URINE NEGATIVE (Neg); LEUKOCYTE ESTERASE ,URINE NEGATIVE (Neg); NITRITES, URINE NEGATIVE (Neg); OCCULT BLOOD,URINE TRACE-INTACT (Neg); PH,URINE 5.5 (4.8-8.0); PROTEIN,URINE NEGATIVE (Neg); UROBILINOGEN,URINE 0.2 E.U/dL (0.2-1.0)
[2023-11-23 05:18] LABS: UA COLLECTION TYPE OTHER
[2023-11-23 05:19] LABS: SQUAMOUS EPITHELIAL CELL,UR FEW /LPF (FEW)
[2023-11-23 05:20] LABS: BACTERIA,URINE 1+ /HPF (Neg); RBC,URINE 0-2 /HPF (0-2); WBC,URINE 0-4 /HPF (0-4)
[2023-11-23 05:55] LABS: BASOPHILS % (AUTO) 0.2 % (0-1); EOSINOPHILS # (AUTO) 0.3 X10'3 (0-0.9); EOSINOPHILS % (AUTO) 2.9 % (0-6); HEMATOCRIT 30.2 % (35.0-45.0); HEMOGLOBIN 9.5 g/dl (12.0-16.0); LYMPHOCYTES # (AUTO) 0.9 X10'3 (1.1-4.8); LYMPHOCYTES % (AUTO) 7.7 % (21-51); MEAN CORPUSCULAR HEMOGLOBIN 28.3 PG (27.0-31.0); MEAN CORPUSCULAR HGB CONC 31.6 g/dL (33.0-36.5); MEAN CORPUSCULAR VOLUME 89.8 FL (78-98); MEAN PLATELET VOLUME 9.7 FL (7.4-10.4); MONOCYTES # (AUTO) 0.8 X10'3 (0-0.9); MONOCYTES % (AUTO) 6.6 % (2-12); NEUTROPHILS # (AUTO) 9.8 X10'3 (1.8-7.7); NEUTROPHILS % (AUTO) 82.6 % (42-75); PLATELET COUNT 313 X10'3 (140-440); RED BLOOD COUNT 3.36 X10'6 (4.20-5.60); RED CELL DISTRIBUTION WIDTH 15.5 % (11.5-14.5); WHITE BLOOD COUNT 11.8 X10'3 (4.5-11.0)
[2023-11-23 06:05] LABS: PROTHROMBIN TIME 10.4 SECONDS (9.0-12.0)
[2023-11-23 06:12] LABS: ALANINE AMINOTRANSFERASE 17 U/L (12-78); ALBUMIN 3.1 G/DL (3.4-5.0); ALBUMIN/GLOBULIN RATIO 0.8 (1.1-1.5); ALKALINE PHOSPHATASE 108 IU/L (46-116); ANION GAP 10 (8-16); ASPARTATE AMINO TRANSFERASE 16 U/L (10-37); BILIRUBIN,TOTAL 0.3 MG/DL (0.1-1.0); BLOOD UREA NITROGEN 21 MG/DL (7-18); BUN/CREATININE RATIO 21.6 (10.0-20.0); CALCIUM 9.1 MG/DL (8.5-10.1); CHLORIDE 100 MMOL/L (99-107); CHOL/HDL RATIO 2.8 (0.00-4.99); CHOLESTEROL 261 MG/DL (0-200); CREATININE 0.97 MG/DL (0.40-0.90); GLUCOSE 180 MG/DL (70-104); HDL CHOLESTEROL 92 MG/DL (35-60); LDL CHOLESTEROL 135 MG/DL (50-100); MAGNESIUM 1.7 MG/DL (1.5-2.4); PHOSPHORUS 5.4 MG/DL (2.3-4.5); POTASSIUM 3.7 MMOL/L (3.5-5.1); SODIUM 142 MMOL/L (135-145); TOTAL CARBON DIOXIDE 31.8 MMOL/L (24-32); TOTAL PROTEIN 6.8 G/DL (6.4-8.2); TRIGLYCERIDES 111 MG/DL (20-135); eCRCL 50 ML/MIN; eGFR 57 ML/MIN
[2023-11-23] MEDS: sevelamer carbonate 800mg tablet PO SCH (06:40)
[2023-11-23] MEDS ORDERED: heparin, porcine 5000 units/ml vial SQ SCH (08:00)
[2023-11-23] MEDS: INSULIN LISPRO 100 UNIT/ML INSULN.PEN MULTI-DOSE SQ SCH ×2 (08:00→09:00)
[2023-11-23] MEDS: metoprolol succinate 25mg (24-HOUR) SR. Tablet PO SCH (08:37)
[2023-11-23] MEDS: HYDROcodone/acetaminophen 5mg/325mg tablet PO PRN (08:38)
[2023-11-23] MEDS: magnesium hydroxide 30ml (MOM) UD suspension PO PRN (08:39)
[2023-11-23] MEDS: lisinopril 10 MG tablet PO SCH (08:39)
[2023-11-23] MEDS: docusate sod 100mg capsule PO SCH (08:39)
[2023-11-23] MEDS ORDERED: pramipexole 1mg tablet PO PRN (09:10)
[2023-11-23] MEDS ORDERED: BUPR-317 PO (09:17)
[2023-11-23] MEDS: nitroGLYCERIN 0.4mg SUBLingual tab SL PRN (10:16)
[2023-11-23] MEDS: K and/or MAG REPLACEMENT MC SCH (10:27)
[2023-11-23] MEDS: aspirin 81mg tab.chew PO SCH (10:56)
[2023-11-23] MEDS: MESSAGE TO NURSING IV ONE (13:45)
[2023-11-23] MEDS: heparin 10,000 units/1 ML INJ IV PRN (14:27)
[2023-11-23] MEDS: heparin 25,000 UNIT/250ml bag 250 ML IV PRN (14:28)
[2023-11-23] MEDS: nitroGLYCERIN-Tridil 50MG/D5W 250 ML IV SCH (14:35)
[2023-11-23] MEDS ORDERED: ipratropium/albuterol 3ml nebule NEB PRN (15:30)
[2023-11-23] MEDS: ipratropium/albuterol 3ml nebule NEB PRN (15:46)
[2023-11-23] MEDS ORDERED: verapamil 2.5 mg/ml inj IV ONE (19:10)
[2023-11-23] MEDS ORDERED: LIDOcaine 1% (10mg/ml) 2ml vial ONE (19:10)
[2023-11-23] MEDS ORDERED: fentaNYL/PF 50MCG/1 ML 2ML syringe ONE (19:11)
[2023-11-23] MEDS ORDERED: heparin 1,000unit/ml 10ml vial 10 ML ONE (19:11)
[2023-11-23] MEDS ORDERED: midazolam 1 mg/ML 2ml injection ONE (19:11)
[2023-11-23] MEDS ORDERED: iohexol 350MG/ML 100ml bottle IV ONE (19:11)
[2023-11-23] MEDS ORDERED: nitroGLYCERIN 500mcg/5mL D5W 5 ML IV ONE (19:19)
[2023-11-23] MEDS: HYDROcodone/acetaminophen 10/325mg tab PO PRN (20:15)
[2023-11-23] MEDS: amitriptyline 50mg tablet PO SCH (20:15)
[2023-11-23] MEDS: insulin glargine (Lantus) pen - multi-dose SQ SCH (21:18)
[2023-11-23] MEDS ORDERED: ondansetron/PF 4mg/2ml inj IV PRN (23:00)
[2023-11-23] MEDS ORDERED: proCHLORperazine 10 MG/2 ml inj IV PRN (23:00)
[2023-11-23] MEDS ORDERED: HYDROcodone/acetaminophen 5mg/325mg tablet PO PRN (23:00)
[2023-11-23] MEDS ORDERED: OXAZEpam 15mg capsule PO PRN (23:00)
[2023-11-24] VITALS (21 sets, daily range): BP systolic 80–149; BP diastolic 55–88; PULSE 95–107; RESP 18–26; TEMP 98.1–98.5; O2SAT 91–98
[2023-11-24 06:11] LABS: BASOPHILS % (AUTO) 0.4 % (0-1); EOSINOPHILS # (AUTO) 0.6 X10'3 (0-0.9); HEMATOCRIT 29.7 % (35.0-45.0); HEMOGLOBIN 9.8 g/dl (12.0-16.0); LYMPHOCYTES # (AUTO) 1.3 X10'3 (1.1-4.8); LYMPHOCYTES % (AUTO) 13.2 % (21-51); MEAN CORPUSCULAR HEMOGLOBIN 29.3 PG (27.0-31.0); MEAN CORPUSCULAR HGB CONC 32.8 g/dL (33.0-36.5); MEAN CORPUSCULAR VOLUME 89.3 FL (78-98); MEAN PLATELET VOLUME 9.3 FL (7.4-10.4); MONOCYTES # (AUTO) 1.1 X10'3 (0-0.9); MONOCYTES % (AUTO) 11.3 % (2-12); NEUTROPHILS # (AUTO) 6.8 X10'3 (1.8-7.7); NEUTROPHILS % (AUTO) 69.1 % (42-75); PLATELET COUNT 296 X10'3 (140-440); RED BLOOD COUNT 3.33 X10'6 (4.20-5.60); RED CELL DISTRIBUTION WIDTH 15.4 % (11.5-14.5); WHITE BLOOD COUNT 9.8 X10'3 (4.5-11.0)
[2023-11-24 06:19] LABS: PROTHROMBIN TIME 10.4 SECONDS (9.0-12.0)
[2023-11-24 06:27] LABS: ALANINE AMINOTRANSFERASE 17 U/L (12-78); ALBUMIN 2.8 G/DL (3.4-5.0); ALBUMIN/GLOBULIN RATIO 0.8 (1.1-1.5); ALKALINE PHOSPHATASE 99 IU/L (46-116); ANION GAP 4 (8-16); ASPARTATE AMINO TRANSFERASE 17 U/L (10-37); BILIRUBIN,TOTAL 0.3 MG/DL (0.1-1.0); BLOOD UREA NITROGEN 18 MG/DL (7-18); BUN/CREATININE RATIO 18.6 (10.0-20.0); CALCIUM 8.5 MG/DL (8.5-10.1); CHLORIDE 97 MMOL/L (99-107); CREATININE 0.97 MG/DL (0.40-0.90); GLUCOSE 141 MG/DL (70-104); MAGNESIUM 1.9 MG/DL (1.5-2.4); PHOSPHORUS 4.3 MG/DL (2.3-4.5); SODIUM 138 MMOL/L (135-145); TOTAL PROTEIN 6.5 G/DL (6.4-8.2); eCRCL 50 ML/MIN; eGFR 57 ML/MIN
[2023-11-24] MEDS: MESSAGE TO NURSING IV ONE (07:44)
[2023-11-24] MEDS: BUPROPION HCL 150 MG PO SCH (08:00)
[2023-11-24] MEDS ORDERED: buPROPion SR 150mg tablet PO SCH (08:00)
[2023-11-24] MEDS: allopurinol 100mg tablet PO SCH (08:45)
[2023-11-24] MEDS: pantoprazole 40mg Tablet.DR PO SCH (08:45)
[2023-11-24] MEDS: sertraline 50mg tablet PO SCH (08:45)
[2023-11-24] MEDS: atorvastatin 20mg tablet PO SCH (08:46)
[2023-11-24] MEDS: multivitamins, therapeutics tablet PO SCH (08:46)
[2023-11-24] MEDS: spironolactone 25 MG tablet PO SCH (14:50)
[2023-11-24] MEDS: HYDROcodone/acetaminophen 10/325mg tab PO PRN (15:33)
[2023-11-24] MEDS: potassium Cl 20 mEq SR tablet PO PRN (17:22)
[2023-11-25] VITALS: BP 144/72; PULSE 99
[2023-11-25 02:00] VITALS: BP 126/70; PULSE 98; RESP 24; TEMP 98.3; O2SAT 94
[2023-11-25 04:00] VITALS: BP 113/71; PULSE 99
[2023-11-25 06:00] VITALS: BP 125/88; PULSE 22; RESP 22; TEMP 98; O2SAT 96; O2SAT 97
[2023-11-25 07:00] LABS: BASOPHILS # (AUTO) 0.1 X10'3 (0-0.2); BASOPHILS % (AUTO) 0.5 % (0-1); EOSINOPHILS # (AUTO) 0.6 X10'3 (0-0.9); EOSINOPHILS % (AUTO) 6.5 % (0-6); HEMATOCRIT 33.9 % (35.0-45.0); HEMOGLOBIN 10.9 g/dl (12.0-16.0); LYMPHOCYTES # (AUTO) 1.2 X10'3 (1.1-4.8); LYMPHOCYTES % (AUTO) 12.9 % (21-51); MEAN CORPUSCULAR HEMOGLOBIN 29.1 PG (27.0-31.0); MEAN CORPUSCULAR HGB CONC 32.3 g/dL (33.0-36.5); MEAN CORPUSCULAR VOLUME 90.3 FL (78-98); MEAN PLATELET VOLUME 9.1 FL (7.4-10.4); MONOCYTES # (AUTO) 1.1 X10'3 (0-0.9); MONOCYTES % (AUTO) 11.1 % (2-12); NEUTROPHILS # (AUTO) 6.6 X10'3 (1.8-7.7); PLATELET COUNT 307 X10'3 (140-440); RED BLOOD COUNT 3.75 X10'6 (4.20-5.60); RED CELL DISTRIBUTION WIDTH 15.4 % (11.5-14.5); WHITE BLOOD COUNT 9.6 X10'3 (4.5-11.0)
[2023-11-25 07:07] LABS: APTT 23 SECONDS (22-32); PROTHROMBIN TIME 10.7 SECONDS (9.0-12.0)
[2023-11-25 07:20] LABS: ALANINE AMINOTRANSFERASE 13 U/L (12-78); ALBUMIN 2.8 G/DL (3.4-5.0); ALBUMIN/GLOBULIN RATIO 0.7 (1.1-1.5); ALKALINE PHOSPHATASE 95 IU/L (46-116); ANION GAP 4 (8-16); ASPARTATE AMINO TRANSFERASE 15 U/L (10-37); BILIRUBIN,TOTAL 0.4 MG/DL (0.1-1.0); BLOOD UREA NITROGEN 19 MG/DL (7-18); BUN/CREATININE RATIO 18.8 (10.0-20.0); CALCIUM 8.8 MG/DL (8.5-10.1); CHLORIDE 100 MMOL/L (99-107); CREATININE 1.01 MG/DL (0.40-0.90); GLUCOSE 152 MG/DL (70-104); MAGNESIUM 1.8 MG/DL (1.5-2.4); PHOSPHORUS 4.7 MG/DL (2.3-4.5); SODIUM 142 MMOL/L (135-145); TOTAL PROTEIN 6.6 G/DL (6.4-8.2); eCRCL 48 ML/MIN; eGFR 55 ML/MIN
[2023-11-25 08:00] VITALS: RESP 22; O2SAT 97
[2023-11-25 14:38] VITALS: BP 120/65; PULSE 96; RESP 20; TEMP 98.6; O2SAT 97
== END 2023-11-25 16:32 | DRG 280 ==
LOC: ER 14:45 → ED HOLD 21:21 → EDBEDREQTM 23:10 → PCU 3S 11-23 00:40
PROVIDERS: ADMIT Internal Medicine Critical Care Medicine; ATTEND Family Medicine
PROC: B32T1ZZ Computerized Tomography (CT Scan) of Left Pulmonary Artery using Low Osmolar Contrast (ICD-10-PCS; principal; 2023-11-22)
PROC: B3201ZZ Computerized Tomography (CT Scan) of Thoracic Aorta using Low Osmolar Contrast (ICD-10-PCS; 2023-11-22)
PROC: B32S1ZZ Computerized Tomography (CT Scan) of Right Pulmonary Artery using Low Osmolar Contrast (ICD-10-PCS; 2023-11-22)
PROC: B2111ZZ Fluoroscopy of Multiple Coronary Arteries using Low Osmolar Contrast (ICD-10-PCS; 2023-11-23)
DX: I21.4 Non-ST elevation (NSTEMI) myocardial infarction (principal); I50.23 Acute on chronic systolic (congestive) heart failure; J96.01 Acute respiratory failure with hypoxia; I13.0 Hypertensive heart and chronic kidney disease with heart failure and stage 1 through stage 4 chronic kidney disease, or unspecified chronic kidney disease; R65.10 Systemic inflammatory response syndrome (SIRS) of non-infectious origin without acute organ dysfunction; Z68.42 Body mass index [BMI] 45.0-49.9, adult; E83.42 Hypomagnesemia; F32.A Depression, unspecified; E78.00 Pure hypercholesterolemia, unspecified; E83.39 Other disorders of phosphorus metabolism; I27.20 Pulmonary hypertension, unspecified; J44.9 Chronic obstructive pulmonary disease, unspecified; E11.22 Type 2 diabetes mellitus with diabetic chronic kidney disease; E11.51 Type 2 diabetes mellitus with diabetic peripheral angiopathy without gangrene; N18.2 Chronic kidney disease, stage 2 (mild); E66.01 Morbid (severe) obesity due to excess calories; Z79.899 Other long term (current) drug therapy; Z79.82 Long term (current) use of aspirin; Z79.84 Long term (current) use of oral hypoglycemic drugs; Z79.4 Long term (current) use of insulin; Z87.891 Personal history of nicotine dependence
CPT/HCPCS: 36415; 71045; 71275; 80048; 80053; 80061; 80076; 81001; 82306; 82948; 83605; 83735; 83880; 83970; 84100; 84145; 84484; 84550; 85025; 85610; 85730; 87040; 87081; 93005; 93308; 93454; 94640; 94760; 96365; 96375; 97110; 97161; 97530; 99152; 99285; A6258; A6449; C1894; G0378; J1644; J1815; J1940; J2250; J2270; J2405; J3010; J3475; J3490; Q9967